=== PATIENT | female | born 1965 | race Caucasian/White ===

== ENCOUNTER 2025-03-24 09:51 | Outpatient (AMB) | payer OTHER, SELFPAY ==
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
[2025-03-24 10:30] VITALS: BP 108/64; PULSE 80; RESP 16; TEMP 36.6; O2SAT 96; BMI 30.1
--- OUTSIDE RECORDS SUMMARY | 2025-03-24 10:49 | XMS_ITS | Patient Health Record ---
Author Organization Total [facility] Address [address] [place] [address] Care Team Providers Care Door Slinger Name Role Phone Estephania Benedict Unavailable [phone] Allergies Allergen (clinical drug ingredient) Drug/Non Drug Allergy documented on EMR Reaction Allergy Type Onset Date Status povidone-iodine Betadine Unknown Drug Allergy A ctive Results Component Value Reference Range Notes Urinalysis Reviewed date:02/03/2025 09:27:36 AM Interpretation: Performing Lab: Notes/Report: PH 8.0 PROTEIN Neg GLUCOSE Neg [id number] IGP No Culture 30 Plus Reviewed date:02/07/2025 11:19:09 AM Interpretation: Performing Lab:[facility] [place], [address], [address], [place], Phone - [phone], Director - [employer] Notes/Report: Clinical Information:Vaginal/Cervical, LMP: Men o [id number] LMP / Prev Treat...[id number] Dates / Results....02/22/21 NIL, Neg HPV Other..............Post Menopausal No. of containers..01 ThinPrep Vial DIAGNOSIS: NEGATIVE FOR INTRAEPITHELIAL LESION OR MALIGNANCY. CELLULAR CHANGES ASSOCIATED WITH ATROPHY ARE PRESENT. Specimen adequacy: Satisfactory for evaluation. Endocervical component may not be distinguished in cases of atrophy. Clinician provided ICD10: Z0 1.419 Performed by: Andreas Olson , Explosive Ordnance Disposal Manager (ASC) . . Note: The Pap smear is a screening test designed to aid in the detection of premalignant and malignant conditions of the uterine cervix. It is not a diagnostic procedure and should not be used as the sole means of detecting cervical cancer. Both false-positive and false-negative reports do occur. . Test Methodology: TN The Thin Prep(R) General Forecaster was unable to read this specimen. Therefore a manual review was performed. HPV Aptima Negative Negative This nucleic acid amplification test detects fourteen high-risk HPV types (16,18,31,33,35,39,45,51,52,56,58 ,59,66,68) without differentiation. HPV Genotype Reflex Criteria not met, HPV Genotype not performed. PDF Report Reviewed date:02/07/2025 11:18:52 AM Interpretation: Performing Lab:[facility], [address], [address], [place], Phone - [phone], Director - [employer] Notes/Report: Clinical Information:Vaginal/Cervical, LMP: Men o [id number] LMP / Prev Treat...[id number] Dates / Results....02/22/21 NIL, Neg HPV Other..............Post Menopausal No. of containers..01 ThinPrep Vial Reason For Referral No Information Medications Medication SIG (Take, Route, Frequency, Duration) Notes Start Date End Date Status Symbicort 80-4.5 MCG/ACT INHALE 2 PUFFS TWICE A DAY Inhalation for 30 Not-Taking Albuterol Sulfate HFA 108 (90 Base) MCG/ACT INHALE 1 PUFF EVERY 6 HOURS NEEDED FOR WHEEZE Inhalation for 25 Not-Taking Calcium Magnesium Zinc 333-133-5 MG 1 tablet with meals Orally Active Glucosamine Chondr Complex Active Flax Seed Oil 1000 MG as directed Orally Active Vitamin B Complex - as directed Orally Active Estradiol 10 MCG 1 tablet Vaginal Two times a Week for 90 days 02/03/2025 Active Social History Tobacco Use: Social History Observation Description Date Details (start date - stop date) Never Smoker NA - NA Sexual History Question Answer Notes Had sex in the past 12 months (vaginal, oral, or anal)? No Have you ever had a Sexually transmitted disease ? No AUDIT-C (Standard) Question Answer Notes Did you have a drink contain ing alcohol in the past year? Yes How often did you have a dri nk containing alcohol in the past year? 2 to 4 times a month (2 points) How many drinks did you have on a typical day when you were drinking in the past year? 1 or 2 drinks (0 point) How often did you have six o r more drinks on one occasion in the past year? Never (0 point) Points 2 Interpretation Negative Tobacco Control (Standard) Question Answer Notes Tobacco use: Nonsmoker Problems Problem Type SNOMED Code ICD Code Onset Dates Problem Status W/U Status Risk Notes Problem Menopause (136386991) Menopausal and female climacteric states (N95.1) Active confirmed Problem Postmenopausal atrophic vaginitis (29090674) Postmenopausal atrophic vaginitis (N95.2) Active confirmed Problem Postmenopausal bleeding (48879151) Postmenopausal bleeding (N95.0) Active confirmed Problem Anxiety disorder (703886610) Anxiety disorder, unspecified (F41.9) Active confirmed Problem Asthma (605148005) Other asthma (J45.998) Active confirmed Problem Abnormal vaginal bleeding (123246882) Other specified abnormal uterine and vaginal bleeding (N93.8) Active confirmed Problem Unspecified menopausal and perimenopausal disorder (N95.9) Active confirmed Problem Menopause (366911179) Menopausal and female climacteric states (N95.1) Active confirmed Vital Signs Temperature 97.9 degrees Fahrenheit 02/03/2025 Blood pressure diastolic 84 mm Hg 02/03/2025 Height 67 in 02/03/2025 Blood pressure systolic 124 mm Hg 02/03/2025 Weight 189 lbs 02/03/2025 BMI 29.6 kg/m2 02/03/2025 Encounters Encounter Location Date Provider Diagnosis [facility] [employer] [facility] [employer] [address] [address] 02/03/2025 Estephania Benedict Encounter for screening mammogram for malignant neoplasm of breast Z12.31 ; Postmenopausal atrophic vaginitis N95.2 and Encounter for gynecological examination (general) (routine) without abnormal findings Z01.419 [facility] [employer] [facility] [address] [address] 02/03/2025 Estephania Benedict Postmenopausal atrophic vaginitis N95.2 [facility] [employer] [facility] [address] [address] 02/15/2025 Estephania Benedict Assessments Encounter Date Diagnosis (ICD Code) Assessment Notes Treatment Notes Treatment Clinical Notes Section Notes 02/03/2025 Encounter for screening mammogram for malignant neoplasm of breast (ICD-10 - Z12.31) REGULAR MAMMOGRAMS AND SBE'S WERE RECOMMENDED. 02/03/2025 Postmenopausal atrophic vaginitis (ICD-10 - N95.2) 02/03/2025 Postmenopausal atrophic vaginitis (ICD-10 - N95.2) DISCUSSED FINDINGS, DX AND TX OPTIONS. DISCUSSED INTRAVAGINAL ESTROGEN, ITS BENEFITS AND RISKS. PAT DECIDED TO TRY. DETAILED INSTRUCTIONS AND RX WERE GIVEN. SHE HAS NO CONTRAINDICATIONS AND ACCEPTS RISKS. 02/03/2025 Encounter for gynecological examination (general) (routine) without abnormal findings (ICD-10 - Z01.419) PAP TEST WITH HPV TYPING WAS OBTAINED. Plan Of Treatment Pending Test Test Name Order Date Sonohysterogram 08/29/2022 Test, Urine 03/10/2021 MAMMOGRAM, SCREENING 02/03/2025 Urinalysis 06/14/2022 Urinalysis 02/22/2021 MM Digital Mammo Screening 02/22/2021 MM Digital Mammo Screening 06/14/2022 MM Digital Mammo Screening 09/10/2023 MM Digital Mammo Screening 02/03/2025 Next Appt Details Provider Name:Estephania Stanley fletcherkaylah, 02/04/2026 10:20:00 AM, [address], [address], [place], [address], Insurance Providers Payer Name Payer Address Payer Phone Subscriber Number Group Number Insured Name Patient Relationship to Insured Coverage Start Date Coverage End Date [employer] [address] [place], [place] [id number] [facility] Self - patient is the insured Medical (General) History Medical History History ICD Code Other asthma J45.998 Anxiety disorder, unspecified F41.9 Other specified abnormal uterine and vag inal bleeding N93.8 Menopausal and female climacteric states N95.1 Postmenopausal bleeding N95.0 Polyp of corpus uteri N84.0 Unspecified menopausal and perimenopausa l disorder N95.9 Surgical History Surgery Date(Month/Year) Breast Biopsy 2014 Colonoscopy D and C Hysteroscopy for Endometrial Edward yp 05/2021 EMB 10/05/22 Hospitalization History Reason Date(Month/Year) 3 Days Fell Broke 6 Ribs 1 Vaginal Delivery
--- OUTSIDE RECORDS SUMMARY | 2025-03-24 10:49 | XMS_ITS ---
Author Organization [facility] Address [address] [facility] [address] [place] [address] Care Team Providers Care Lye Peel Operator Name Role Phone Estephania Benedict Unavailable [phone] Allergies Allergen (clinical drug ingredient) Drug/Non Drug Allergy documented on EMR Reaction Allergy Type Onset Date Status povidone-iodine Betadine Unknown Drug Allergy A ctive Results Component Value Reference Range Notes Urinalysis Reviewed date:02/03/2025 09:27:36 AM Interpretation: Performing Lab: Notes/Report: PH 8.0 PROTEIN Neg GLUCOSE Neg [id number] IGP No Culture 30 Plus Reviewed date:02/07/2025 11:19:09 AM Interpretation: Performing Lab:[facility] [place], [address], [address], [place], Phone - [phone], Director - [facility] Notes/Report: Clinical Information:Vaginal/Cervical, LMP: Men o [id number] LMP / Prev Treat...[id number] Dates / Results....02/22/21 NIL, Neg HPV Other..............Post Menopausal No. of containers..01 ThinPrep Vial DIAGNOSIS: NEGATIVE FOR INTRAEPITHELIAL LESION OR MALIGNANCY. CELLULAR CHANGES ASSOCIATED WITH ATROPHY ARE PRESENT. Specimen adequacy: Satisfactory for evaluation. Endocervical component may not be distinguished in cases of atrophy. Clinician provided ICD10: Z0 1.419 Performed by: Andreas Olsno , Home Theatre Technician (ASCP) . . Note: The Pap smear is a screening test designed to aid in the detection of premalignant and malignant conditions of the uterine cervix. It is not a diagnostic procedure and should not be used as the sole means of detecting cervical cancer. Both false-positive and false-negative reports do occur. . Test Methodology: TNP The Thin Prep(R) Motion Study Technician was unable to read this specimen. Therefore a manual review was performed. HPV Aptima Negative Negative This nucleic acid amplification test detects fourteen high-risk HPV types (16,18,31,33,35,39,45,51,52,56,58 ,59,66,68) without differentiation. HPV Genotype Reflex Criteria not met, HPV Genotype not performed. PDF Report Reviewed date:02/07/2025 11:18:52 AM Interpretation: Performing Lab:[facility], [address], [address], [place], Phone - [phone], Director - [facility] Notes/Report: Clinical Information:Vaginal/Cervical, LMP: Men o [id number] LMP / Prev Treat...[id number]=[id number] Dates / Results....02/22/21 NIL, Neg HPV Other..............Post Menopausal No. of containers..01 ThinPrep Vial REASON FOR VISIT Annual TAPE TRANSFERRER Physical, Annual TAPE TRANSFERRER Physical 60-85+ Medications Medication SIG (Take, Route, Frequency, Duration) Notes Start Date End Date Status Calcium Magnesium Zinc 333-133-5 MG 1 tablet with meals Orally Active Glucosamine Chondr Complex Active Flax Seed Oil 1000 MG as directed Orally Active Vitamin B Complex - as directed Orally Active Symbicort 80-4.5 MCG/ACT INHALE 2 PUFFS TWICE A DAY Inhalation for 30 Not-Taking Albuterol Sulfate HFA 108 (90 Base) MCG/ACT INHALE 1 PUFF EVERY 6 HOURS NEEDED FOR WHEEZE Inhalation for 25 Not-Taking Estradiol 10 MCG 1 _insert Vaginal Tw o times a Week for 90 days 02/03/2025 [...] Problem Status W/U Status Risk Notes Problem Postmenopausal atrophic vaginitis (75943754) Postmenopausal atrophic vaginitis (N95.2) Active confirmed Vital Signs Temperature 97.9 degrees Fahrenheit 02/04/20 25 Blood pressure systolic 124 mm Hg 02/04/20 25 Blood pressure diastolic 84 mm Hg 025 Height 67 in 02/03/2025 Weight 189 lbs 02/03/2025 BMI 29.6 kg/m2 02/03/2025 Encounters Encounter Location Date Provider Diagnosis [address] [place] [address] 02/03/2025 Estephania Benedict Encounter for screening mammogram for malignant neoplasm of breast Z12.31 ; Postmenopausal atrophic vaginitis N95.2 and Encounter for gynecological examination (general) (routine) without abnormal findings Z01.419 Assessments Encounter Date Diagnosis (ICD Code) Assessment [...] HPV TYPING WAS OBTAINED. Plan Of Treatment Medication Medication Name Sig Start Date Stop Date Notes Estradiol 10 MCG 1 _insert Vaginal Tw o times a Week for 90 days 02/03/2025 Treatment Notes Assessment Notes Encounter for screening mamm ogram for malignant neoplasm of breast REGULAR MAMMOGRAMS AND SBE'S WERE RECOMMENDED. Postmenopausal atrophic vaginitis DISCUSSED FINDINGS, DX AND TX OPTIONS. DISCUSSED INTRAVAGINAL ESTROGEN, ITS BENEFITS AND RISKS. PAT DECIDED TO TRY. DETAILED INSTRUCTIONS AND RX WERE GIVEN. SHE HAS NO CONTRAINDICATIONS AND ACCEPTS RISKS. Encounter for gynecological examination (general) (routine) without abnormal findings PAP TEST WITH HPV TYPING WAS OBTAINED. Pending Test Test Name Order Date MAMMOGRAM, SCREENING 02/03/2025 MM Digital Mammo Screening 02/03/2025 Next Appt Details Follow Up: 1 Year, Reason: Provider Name:Estephania mccrary, 02/04/2026 10:20:00 AM, [address] [place] [address], [address], [place], [address], Progress Notes * KRYSTINAIVETH LOYDREBECCAOB: [birth year] (60 yo F)Acc No.[id number]:02/03/2025 PROGRESS NOTES Patient:?ARMAND MORIN Appointment Provider:?Estephania mccrary M.D. :1965???Age:60 Y???Sex:Female D ate:02/03/2025 Address:[address] [place], [place] [id number] Subjective: * Chief Complaints: * ??? Annual TAPE TRANSFERRER PhysicalAnnua l TAPE TRANSFERRER Physical 60-85+ * HPI: ???New/Follow-up Patient Consult:? PAT ENTERED MENOPAUSE IN 2020.? SHE WAS IN 2016 AND HAD A NEW PARTNER FOR A FEW YEARS BUT THEY HAVE BROKEN UP.? SHE IS NOT SEXUALLY ACTIVE. SHE UNDERWENT HYSTEROSCOPY, POLYPECTOMY AND D&C IN 2020 WITH BENIGN FINDINGS. SHE HAD PMB IN 2021 AND HSONO AND EMB WERE NEGATIVE. HER LAST MAMMOGRAM DONE IN DEC 2024 SHOWED BREASTS ARE NOT DENSE AND WAS NORMAL. HER LAST PAP TEST IN 2020 WAS NEGATIVE AND HPV NEGATIVE. SHE HAD COLONOSCOPIES DONE IN 2014 AND 2023. ???Annual:? Patient presents for annual exam, ages 60-85, postmenopausal. 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 * Medical History:? * Project Development Coordinator History:?/ Para?11/18.?Sexual activity?not currently sexually active.?Last Pap Smear:?02/22/21 NIL, NEG HPV, 04/10/17, NIL, NEG HPV.?Mammogram:?12/21/24 < 50% density, 2021, 09/06/21 < 50% density, 09/02/20 Mylene Rain.?Abnormal Pap Smear:?no history of abnormal pap smears.?LMP and menses?Mirella 02/11/21.?History of STD's:?none.?Colonoscopy?2023 Q 10 Years, 2014.? * OB History:?Total pregnancies?1.?Total living children?1.?NVD?1.? * Surgical History:?Breast Bio psy 2014Colonoscopy D and C Hysteroscopy for Endometrial Polyp 1EMB 10/05/22 * Hospitalization/Major Diagno stic Procedure:?1 Vaginal Delivery 3 Days Fell Broke 6 Ribs * Family History:?Mother: dece ased, Lymphoma Stage 4.?Father: .? Sister: Stage 4 Pancreatic Cancer. * Social History:?Tobacco Use:?Tobacco Control (Standard)?Tobacco use:?Nonsmoker ???Sexual History:?Sexual History?Had sex in the past 12 months (vaginal, oral, or anal)??No ?Have you ever had a Sexually transmitted disease??No ?Details of Sexual History?Are you sexually active??No ???Drugs/Alcohol:?Drugs?Have you used drugs other than those for medical reasons in the past 12 months??No ???Miscellaneous:?Children: yes, 1. ?Exercise: Not enough. ?Home smoke detector use: yes. ?Marital status: . ?Natural support system: yes. 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 ?Sexually active: no. ???Drug/Alcohol:?AUDIT-C (Standard)?Did you have a drink containing alcohol in the past year??Yes ?How often did you have a drink containing alcohol in the past year??2 to 4 times a month (2 points) ?How many drinks did you have on a typical day when you were drinking in the past year??1 or 2 drinks (0 point) ?How often did you have six or more drinks on one occasion in the past year??Never (0 point) ?Points?2 ?Interpretation?Negative * Medications:?TakingVitamin B Complex - Tablet as directed Orally Flax Seed Oil 1000 MG Capsule as directed Orally Glucosamine Chondr Complex Calcium Magnesium Zinc 333-133-5 MG Tablet 1 tablet with meals Orally Taking Vitamin B Complex - Tablet as directed Orally Taking Flax Seed Oil 1000 MG Capsule as directed Orally Taking Glucosamine Chondr Complex Taking Calcium Magnesium Zinc 333-133-5 MG Tablet 1 tablet with meals Orally Not-TakingSymbicort 80-4.5 MCG/ACT Aerosol INHALE 2 PUFFS TWICE A DAY Inhalation Albuterol Sulfate HFA 108 (90 Base) MCG/ACT Aerosol Solution INHALE 1 PUFF EVERY 6 HOURS NEEDED FOR WHEEZE Inhalation Not-Taking Symbicort 80-4.5 MCG/ACT Aerosol INHALE 2 PUFFS TWICE A DAY Inhalation Not-Taking Albuterol Sulfate HFA 108 (90 Base) MCG/ACT Aerosol Solution INHALE 1 PUFF EVERY 6 HOURS NEEDED FOR WHEEZE Inhalation DiscontinuedCitalopram Hydrobromide 10 MG Tablet 1 tablet Orally Once a day Medication List reviewed and reconciled with the patientDiscontinued Citalopram Hydrobromide 10 MG Tablet 1 tablet Orally Once a day Medication List reviewed and reconciled with the patient * Allergies:?Betadine: Allergy no[Allergies Verified] Objective: * Vitals:?Ht: 67 in, Wt:189lbs , BMI:29.6Index, BP:124/84mm Hg, Temp:97.9F. * Examination: ???General Exam: ?CONSTITUTIONAL:?General Appearance:?alert, in no acute distress, normal, well nourished ?NECK/THYROID:?Inspection/Palpation:?normal ?Thyroid:?normal size and shape ?RESPIRATORY:?Auscultation: clear to auscultation bilaterally, Respiratory Effort: normal.?CARDIOVASCULAR:?Auscultation: regular rate and rhythm.?BREAST, Right:?Inspection/Palpation:?no discharge, no masses present, no nipple retraction, no skin changes, no skin dimpling, no tenderness, no lymphadenopathy, no axillary mass, no axillary tenderness ?BREAST, Left:?Inspection/Palpation:?no discharge, no masses present, no nipple retraction, no skin changes, no skin dimpling, no tenderness, no lymphadenopathy, no axillary mass, no axillary tenderness ?GASTROINTESTINAL:?Abdomen:?no masses, nontender, nondistended ?Liver and Spleen:?normal ?Hernias:?no hernias present, no inguinal adenopathy ?MUSCULOSKELETAL:?Inspection/Palpation:?no clubbing, cyanosis, or edema ?SKIN:?Skin:?normal ?NEURO/PSYCH:?Orientation:?time , place, person ?Mood/Affect:?normal?Genitourinary: ?EXTERNAL GENITALIA:?External Genitalia:?normal, no lesions ?VAGINA:?Vagina:?atrophic vaginal tissue, minimal moisture ?BLADDER:?Bladder:?no mass, nontender ?URETHRA:?Urethra:?no erythema or lesions present ?CERVIX:?Cervix:?no lesions, nontender ?UTERUS:?Uterus:?nontender, normal contour, normal mobility, normal size ?ADNEXA:?Adnexa:?no masses, no tenderness ?ANUS AND PERINEUM:?Anus/Perineum:?visually normal??? Assessment: * Assessment: 1.?Encounter for screening m ammogram for malignant neoplasm of breast - Z12.31???2.?Postmenopausal atrophic vaginitis - N95.2???3.?Encounter for gynecological examination (general) (routine) without abnormal findings - Z01.419 (Primary)??? Plan: * Treatment: 2.?Encounter for screening m ammogram for malignant neoplasm of breast?Imaging: MM Digital Mammo Screening Notes: REGULAR MAMMOGRAMS AND SBE'S WERE RECOMMENDED.?? 3.?Postmenopausal atrophic v aginitis? Start Estradiol Insert, 10 MCG, 1 _insert, Vaginal, Two times a Week, 90 days, 24 Tablet, Refills 5.?? Notes: DISCUSSED FINDINGS, DX AND TX OPTIONS. DISCUSSED INTRAVAGINAL ESTROGEN, ITS BENEFITS AND RISKS. PAT DECIDED TO TRY. DETAILED INSTRUCTIONS AND RX WERE GIVEN. SHE HAS NO CONTRAINDICATIONS AND ACCEPTS RISKS.?? * Imaging:? * ?Imaging: MAMMOGRAM, SCR EENING * Labs:? * ?Lab: Urinalysis ([facility] Date & Time - 02/03/2025) ? Value Reference Range ?PH 8.0 * ?PROTEIN Neg * ?GLUCOSE Neg * D., VAISHALI 02/03/2025 09:21:15 AM EDT > ?Lab: [id number] IGP No Culture 30 Plus* Vaginal/Cervical, LMP: [place] * Procedure Codes:? * Preventive Medicine:? ??YOUR PREVENTIVE WELLNESS PLAN:?Osteoporosis prevention?Calcium, D, strength training.?Breast Cancer Screening (Mammogram):?annually.?Cervical Cancer Screening (Pap Smear):?q 3 years with HPV screen.?Colorectal Cancer Screening:?q 10 years.? * Follow Up:?1 Year * Images: Billing Information: * Visit Code:? [id number] Preventive Care Est Pt. Age 65 and over. * Procedure Codes:? * Sign off status: Completed true * Appointment Provider:?Estephania Benedict M.D. Date:?02/03/2025 Generated for Ronald harris/Ana/eTchanelsmitting on:?03/24/2025 10:49 AM EDT History and Physical Notes * HPI (History of Present Illness) Category Sub-Category Detail Notes Category Not es New/Follow-up Patient Consult PAT ENTERED MENOPAUSE IN 2020. SHE WAS IN 2017 AND HAD A NEW PARTNER FOR A FEW YEARS BUT THEY HAVE BROKEN UP. SHE IS NOT SEXUALLY ACTIVE. SHE UNDERWENT HYSTEROSCOPY, POLYPECTOMY AND D&C IN 2020 WITH BENIGN FINDINGS. SHE HAD PMB IN 2021 AND HSONO AND EMB WERE NEGATIVE. HER LAST MAMMOGRAM DONE IN DEC 2024 SHOWED BREASTS ARE NOT DENSE AND WAS NORMAL. HER LAST PAP TEST IN 2020 WAS NEGATIVE AND HPV NEGATIVE. SHE HAD COLONOSCOPIES DONE IN 2014 AND 2023. 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 Examination Category Sub-Category Detail Notes Category Not es General Exam CONSTITUTIONAL: General Appearan ce:: alert, in no acute distress, normal, well nourished NECK/THYROID: Thyroid:: normal size and shape Inspection/Palpation:: normal RESPIRATORY: Auscultation: clear to auscultation bilaterally, Respiratory Effort: normal CARDIOVASCULAR: Auscultation: regula r rate and rhythm GASTROINTESTINAL: Hernias:: no hernias present, no inguinal adenopathy Liver and Spleen:: normal Abdomen:: no masses, nontender, nondiste nded MUSCULOSKELETAL: Inspection/Palpation:: no clubb ing, cyanosis, or edema SKIN: Skin:: normal NEURO/PSYCH: Mood/Affect:: normal Orientation:: time , place, person BREAST, Right: Inspection/Palpation :: no discharge, no masses present, no nipple retraction, no skin changes, no skin dimpling, no tenderness, no lymphadenopathy, no axillary mass, no axillary tenderness BREAST, Left: Inspection/Palpation :: no discharge, no masses present, no nipple retraction, no skin changes, no skin dimpling, no tenderness, no lymphadenopathy, no axillary mass, no axillary tenderness Genitourinary EXTERNAL GENITALIA: External Genitalia:: nor mal, no lesions VAGINA: Vagina:: atrophic vaginal tissue , minimal moisture BLADDER: Bladder:: no mass, nontender URETHRA: Urethra:: no erythema or lesions present CERVIX: Cervix:: no lesions, nontender UTERUS: Uterus:: nontender, normal conto ur, normal mobility, normal size ADNEXA: Adnexa:: no masses, no tendernes s ANUS AND PERINEUM: Anus/Perineum:: visually norm al
--- OUTSIDE RECORDS SUMMARY | 2025-03-24 10:50 | XMS_ITS ---
Author Organization [facility] Address [address] [place] [address] Care Team Providers Care Plc Engineer Name Role Phone Estephania Benedict Unavailable [phone] REASON FOR VISIT RX QUESTION Encounters Encounter Location Date Provider Diagnosis [facility] [address] [place] [address] 02/15/2025 Estephania Benedict Plan Of Treatment Next Appt Details Provider Name:Estephania mccrary, 02/04/2026 10:20:00 AM, [address] [facility] [facility] [address], [place], [address], Progress Notes * EDELMIRA MORINOB: [birth year] (60 yo F)Acc No.[id number]:02/15/2025 Patient:?ARMAND MORIN :1965???Age:60 Y???Sex:Female Address:[address] [place] [address], [address] * true * Date:? Generated for Printi ng/Fapriteshg/eTransmitting on:?03/24/2025 10:49 AM EDT
--- OUTSIDE RECORDS SUMMARY | 2025-03-24 10:50 | XMS_ITS ---
Author Organization [facility] Address [address] [place] [address] Care Team Providers Care High Court Justice Name Role Phone Estephania Benedict Unavailable [phone] REASON FOR VISIT ESTRADIOL RX FROM 02/03 Medications Medication SIG (Take, Route, Fr equency, Duration) Notes Start Date End Date Status Estradiol 10 MCG 1 tablet Vaginal Two times a Week for 90 days 02/03/2025 Active Encounters Encounter Location Date Provider Diagnosis [facility] [address] 02/03/2025 Estephania Benedict Postmenopausal atrophic vaginitis N95.2 Assessments Encounter Date Diagnosis (ICD Code) Assessment Notes Treatment Notes Treatment Clinical Notes Section Notes 02/03/2025 Postmenopausal atrophic vaginitis (ICD-10 - N95.2) Plan Of Treatment Medication Medication Name Sig Start Date Stop Date Notes Estradiol 10 MCG 1 tablet Vaginal Two times a Week for 90 days 02/03/2025 Next Appt Details Provider Name:Estephania mccrary, 02/04/2026 10:20:00 AM, [address] [place] [address], [place], [address], Progress Notes * EDELMIRA MORINOB: [birth year] (60 yo F)Acc No.[id number]:02/03/2025 Patient:?ARMAND MORIN :1965???Age:60 Y???Sex:Female Address:[address] [place] [address], [address] * Refills? Refill Estradiol Tablet, 10 MCG, Vaginal, 24 Tablet, 1 tablet, Two times a Week, 90 days, Refills=4 * true * Date:? Generated for Ronald harris/Ana/Belia on:?03/24/2025 10:49 AM EDT
== END 2025-03-24 11:04 | disposition home or self-care (01) ==
LOC: HO.HMCFM 09:52
PROVIDERS: PCP Family Medicine; Visit Provider Family Medicine
DX: J45.909 Unspecified asthma, uncomplicated (principal); M54.9 Dorsalgia, unspecified; F41.9 Anxiety disorder, unspecified; Z80.8 Family history of malignant neoplasm of other organs or systems; Z00.00 Encounter for general adult medical examination without abnormal findings

== ENCOUNTER → 2025-03-24 09:51 | Outpatient (BNVA) | payer OTHER, SELFPAY | PROVIDERS: PCP Family Medicine; Visit Provider Family Medicine | DX: Z76.89 Persons encountering health services in other specified circumstances (principal); J45.909 Unspecified asthma, uncomplicated; M54.9 Dorsalgia, unspecified; F41.9 Anxiety disorder, unspecified; Z80.8 Family history of malignant neoplasm of other organs or systems | CPT/HCPCS: 96127; 96160 ==

== ENCOUNTER 2025-06-17 08:16 | Outpatient (REF) | payer OTHER, SELFPAY ==
--- OUTSIDE RECORDS SUMMARY | 2024-09-11 06:40 | XMS_ITS ---
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 :1965 A ge:59 Y S ex:Female Date:09/11/2024 Address:[address] [place], [place] [id number] Subjective: * Chief Complaints: * 1 . 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 * Medical History: Objective: * Vitals: Assessment: Plan: * Treatment: * Images: Billing Information: * Visit Code: * Procedure Codes: * Electronic signature of Zain Benedict MD on 06/17/2025 at 08:23 AM EDT Sign off status: Pending * Appointment Provider: [place] Benedict M.D. Date: 1 Generated for Ronald harris/Ana/Belia on: 0 06/17/2025 08:23 AM EDT
--- OUTSIDE RECORDS SUMMARY | 2025-06-17 08:23 | XMS_ITS | Encounter Summary ---
Author Organization [facility] Address [address] [facility], [place] [address] [place] [address] Phone Care Team Providers Care Mate Fishing Vessel Name Role Phone Biibana Taylor NP Unavailable [phone] Lara Dinh RDCS Unavailable [email or web address] Becky Longo MD Unavailable Alexandra Townsend MD Unavailable Simran James MD Primary Care Provider [phone] Simran James MD Primary Care Provider [phone] Tenzin eHrnandez MD Primary Care Provide r Simran James MD Primary Care Provider [phone] Encounter Details Date Type Department Care Team (Late st Contact Info) Description 05/27/2019 Ancillary Orders Virtual Department [address] [place] [address] Simran James MD [address] [place], [place] [phone] [email or web address] Breast screening Social History Tobacco Use Types Packs/Day Years Used Date Smoking Tobacco: Never Assessed Comments Unknown Sex and Gender Information Value Date Recorded Sex Assigned at Not on file Legal Sex Female 9:43 PM EDT Gender Identity Not on file Sexual Orientation Not on file documented as of this encounter Plan of Treatment Not on file documented as of this encounter Results * BI MAMMOGRAM SCREENING WITH TOMOSYNTHESIS WITH CAD (BILATERAL) (06/03/2019 10:19 AM EDT) Anatomical Region Laterality Modality Breast Left, Breast Right, Breast Bilateral Bila teral Mammography 06/03/2019 7:35 PM EDT Impressions 06/03/2019 7:41 PM EDT BILATERAL BREASTS: Negative, no evidence of malignancy. Normal interval follow- up is recommended in 12 months. Bi-RADS: BI-RADS CATEGORY: 1 - Negative. DENSITY: The breast tissue is heterogeneously dense, an appearance which lowers the sensitivity of mammography. POS - CDHMAMA Narrative 06/03/2019 7:41 PM EDT STUDY: Bilateral screening mammography with tomosynthesis and CAD History of right breast lumpectomy for atypia in 2014 TECHNIQUE: Bilateral full-field digital screening mammography is obtained and read in conjunction with computer-aided detection. Tomosynthesis as well as 2-D C view imaging were obtained. COMPARISON: Comparison made to multiple prior, most recent January 10, 2018, and most remote November 03, 2009. BREAST COMPOSITION: The breasts are heterogeneously dense, which may obscure small masses. BILATERAL BREASTS: No significant masses, calcifications or other abnormalities are seen. Procedure Note Ana Maria Burton MD - 06/03/2019 STUDY: Bilateral screening mammography with tomosynthesis and CAD History of right breast lumpectomy for atypia in 2014 TECHNIQUE: Bilateral full-field digital screening mammography is obtainedand read in conjunction with computer-aided detection. Tomosynthesis aswell as 2-D C view imaging were obtained. COMPARISON: Comparison made to multiple prior, most recent December, and most remote November 03, 2009. BREAST COMPOSITION: The breasts are heterogeneously dense, which mayobscure small masses. BILATERAL BREASTS: No significant masses, calcifications or otherabnormalities are seen. IMPRESSION: BILATERAL BREASTS: Negative, no evidence of malignancy. Normal intervalfollow-up is recommended in 12 months. Bi-RADS: BI-RADS CATEGORY: 1 - Negative. DENSITY: The breast tissue is heterogeneously dense, an appearance whichlowers the sensitivity of mammography. POS - CDHMAMA Simran James MD IMG MG EXAMS Final Res ult documented in this encounter Visit Diagnoses Diagnosis Breast screening Breast screening, unspecified Breast screening Breast screening, unspecified documented in this encounter Care Teams Mate Fishing Vessel Relationship Specialty Start Date End Date Simran James MD [address] [place] [address] [email or web address] PCP - General Family Medicine 05/27/19 03/09/20 Simran James MD [address] [place] [address] [email or web address] PCP - General Family Medicine 03/10/20 09/09/21 Tenzin Hernandez MD [address] [address] PCP - General Family Medicine 09/10/21 09/25/21 Simran James MD [address] [place] [address] [email or web address] PCP - General Family Medicine 09/26/21 Bibiana Taylor NP [address] [place] [address] [address] [place] [address] Historical LMR Provider 09/04/17 2 Lara Dinh RDCS Historical LMR Provider 09/04/17 11/25/21 Becky Longo MD [address] [place] [address] [address] [place] [phone] [email or web address] Historical LMR Provider 09/04/17 2 Alexandra Townsend MD [address] [place] [id number] [email or web address] Historical LMR Provider 09/04/17 11/25/21 documented as of this encounter Additional Source Comments The information contained in this document represents components of the legal health record. It is not the complete legal health record.[facility]
[2025-06-17 11:09] LABS: Appearance Urine Turbid; Glucose Urine UA Negative (Negative); PH >= 9.0 (5.0-9.0); Specific Gravity - Urine 1.015 (1.005-1.025)
[2025-06-17 11:12] LABS: MANUAL DIFF FLAG NO
[2025-06-17 11:20] LABS: Hematocrit 42.6 % (37.0-47.0); Hemoglobin 14.2 g/dl (12.0-16.0); Imm Gran Abs Auto 0.02 X10*3/uL (0.00-0.03); Imm Gran Pct Auto 0.5 % (0.0-0.4); Lymphocytes Absolute Auto 1.0 X10*3/uL (1.2-4.9); Mean Corpuscular HGB Conc 33.3 g/dl (31.0-35.0); Mean Corpuscular Hemoglobin 30.6 pg (27.0-33.0); Mean Corpuscular Volume 91.8 fL (80.0-98.0); NRBC Abs Auto 0.000 X10*3/uL (0.0-0.012); NRBC Pct Auto 0.0 /100WBC (0.0-0.2); Platelet Count 219 X10*3/uL (160-400); Red Blood Count 4.64 X10*6/uL (4.20-5.50); White Blood Count 4.4 X10*3/uL (4.8-10.8)
[2025-06-17 11:54] LABS: Alanine Aminotransferase 25 U/L (0-31); Albumin Level 4.3 g/dL (3.5-5.0); Alkaline Phosphatase 55 U/L (39-117); Anion Gap 8 (12-20); Aspartate Amino Transferase 27 U/L (5-31); Blood Urea Nitrogen 14 mg/dL (9-16); Calcium 8.9 mg/dL (8.4-10.2); Carbon Dioxide 28 mmol/L (22-29); Chloride 112 mmol/L (96-108); Cholesterol 183 mg/dL (<200); Estimated Glomerular Filt Rate > 60; HDL Cholesterol 66 mg/dL (>40); Potassium 4.1 mmol/L (3.3-5.1); Sodium 144 mmol/L (135-145); Total Protein 6.4 g/dL (6.5-8.0); Triglycerides 45 mg/dL (<150)
== END 2025-06-17 08:17 | disposition home or self-care (01) ==
LOC: HO.WFDLDS 08:16
PROVIDERS: Visit Provider Family Medicine
DX: Z00.00 Encounter for general adult medical examination without abnormal findings (principal); I10 Essential (primary) hypertension; E55.9 Vitamin D deficiency, unspecified
CPT/HCPCS: 36415; 80053; 80061; 81003; 82043; 82306; 82570; 84443; 85025

== ENCOUNTER 2025-07-26 11:52 | Outpatient (AMB) | payer OTHER, SELFPAY ==
--- OUTSIDE RECORDS SUMMARY | 2024-09-11 06:40 | XMS_ITS ---
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 :1965 A ge:59 Y S ex:Female Date:09/11/2024 Address:[address] [place], [place] [id number] Subjective: * Chief Complaints: * 1 . 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 * Medical History: Objective: * Vitals: Assessment: Plan: * Treatment: * Images: Billing Information: * Visit Code: * Procedure Codes: * Electronic signature of Zain Benedict MD on 07/26/2025 at 02:26 PM EDT Sign off status: Pending * Appointment Provider: [place] Benedict M.D. Date: 1 Generated for Ronald harris/Ana/Belia on: 0 07/26/2025 02:26 PM EDT
--- OUTSIDE RECORDS SUMMARY | 2024-10-29 06:40 | XMS_ITS ---
Author Organization Total [facility] Address [address] [place] [address] Care Team Providers Care Ferryboat Deckhand Name Role Phone Estephania Benedict Unavailable [phone] REASON FOR VISIT Annual (YELLOW FORM DONE) Encounters Encounter Location Date Provider Diagnosis [facility] [employer] [address] [address] 10/29/2024 Estephania Benedict Plan Of Treatment Next Appt Details Provider Name:Estephania mccrary, 02/04/2026 10:20:00 AM, [address] [place] [address], [place], [address], Progress Notes * EDELMIRA MORINOB: [birth year] (60 yo F)Acc No.[id number]:10/29/2024 PROGRESS NOTES Patient: ARMAND CHEN Appointment Provider: [place] Benedict M.D. :1965 A ge:59 Y S ex:Female Date:10/29/2024 Address:[address] [place], [place] [id number] Subjective: * Chief Complaints: * 1 . Annual (YELLOW FORM DONE). * Medical History: Objective: * Vitals: Assessment: Plan: * Treatment: * Images: Billing Information: * Visit Code: * Procedure Codes: * Electronic signature of Zain Benedict MD on 07/26/2025 at 02:27 PM EDT Sign off status: Pending * Appointment Provider: [place] Benedict M.D. Date: 1 12/30/2023 Generated for Printi ng/Ana/Oscaritting on: 0 07/26/2025 02:27 PM EDT
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
[2025-07-26 12:31] VITALS: BP 118/66; PULSE 80; O2SAT 97; BMI 30.5
--- OUTSIDE RECORDS SUMMARY | 2025-07-26 14:27 | XMS_ITS | Encounter Summary ---
Author Organization [facility] Address [address] [address] Phone Care Team Providers Care Manager Business Banking Name Role Phone Bibiana Taylor NP Unavailable Lara Dinh RDCS Unavailable [email or web address] Becky Longo MD Unavailable Alexandra Townsend MD Unavailable [phone] Simran James MD Primary Care Provider [phone] Tenzin Hernandez MD Primary Care Provide r Simran James MD Primary Care Provider [phone] Encounter Details Date Type Department Care Team (Latest Contact Info) Description 08/24/2021 Transcribe Orders Virtual Department [address] [place] [address] Simran James MD [address] [place] [address] [email or web address] Breast screening (Primary Dx) Social History Tobacco Use Types Packs/Day Years Used Date Smoking Tobacco: Never Assessed Comments No Sex and Gender Information Value Date Recorded Sex Assigned at Not on file Legal Sex Female 9:43 PM EDT Gender Identity Not on file Sexual Orientation Not on file documented as of this encounter Plan of Treatment Not on file documented as of this encounter Results * BI MAMMOGRAM SCREENING WITH TOMOSYNTHESIS WITH CAD (BILATERAL) (09/06/2021 1:34 PM EDT) Anatomical Region Laterality Modality Breast Left, Breast Right, Breast Bilateral Bila teral Mammography 09/06/2021 4:44 PM EDT Impressions 09/06/2021 5:55 PM EDT BILATERAL BREASTS: Negative, no evidence of malignancy. Normal interval follow- up is recommended in 12 months. Bi-RADS: BI-RADS CATEGORY: 1 - Negative. DENSITY: There are scattered fibroglandular densities. Narrative 09/06/2021 5:55 PM EDT STUDY: Bilateral screening mammography with tomosynthesis and CAD History: Right lumpectomy for atypia in 2014. TECHNIQUE: Bilateral full-field digital screening mammography is obtained and read in conjunction with computer-aided detection. Tomosynthesis as well as 2-D C view imaging were obtained. COMPARISON: Comparison made to multiple prior, most recent September 02, 2020, and most remote January 06, 2015. BREAST COMPOSITION: There are scattered areas of fibroglandular density BILATERAL BREASTS: No significant masses, suspicious calcifications or other abnormalities are seen. Procedure Note Ana Maria Burton MD - 09/06/2021 STUDY: Bilateral screening mammography with tomosynthesis and CAD History: Right lumpectomy for atypia in 2014. TECHNIQUE: Bilateral full-field digital screening mammography is obtainedand read in conjunction with computer-aided detection. Tomosynthesis aswell as 2-D C view imaging were obtained. COMPARISON: Comparison made to multiple prior, most recent August, and most remote January 06, 2015. BREAST COMPOSITION: There are scattered areas of fibroglandulardensity BILATERAL BREASTS: No significant masses, suspicious calcifications orother abnormalities are seen. IMPRESSION: BILATERAL BREASTS: Negative, no evidence of malignancy. Normal intervalfollow-up is recommended in 12 months. Bi-RADS: BI-RADS CATEGORY: 1 - Negative. DENSITY: There are scattered fibroglandular densities. Simran James MD IMG MG EXAMS Final Res ult documented in this encounter Visit Diagnoses Diagnosis Breast screening- Primary Breast screening, unspecified Breast screening Breast screening, unspecified documented in this encounter Care Teams Manager Business Banking Relationship Specialty Start Date End Date Simran James MD [address] [place] [address] [email or web address] PCP - General Family Medicine 03/10/20 09/09/21 Tenzin Hernandez MD [address] [address] PCP - General Family Medicine 09/10/21 09/25/21 Simran James MD [address] [place] [address] [email or web address] PCP - General Family Medicine 09/26/21 Bibiana Taylor NP [address] [place] [address] Historical LMR Provider 09/04/17 2 Lara Dinh, RDCS [email or web address] Historical LMR Provider 09/04/17 11/25/21 Becky Longo MD [address] [place] [address] [place] [id number] [email or web address] Historical LMR Provider 09/04/17 2 Alexandra Townsend MD [address] [address] [email or web address] Historical LMR Provider 09/04/17 11/25/21 documented as of this encounter Additional Source Comments The information contained in this document represents components of the legal health record. It is not the complete legal health record.[facility]
--- OUTSIDE RECORDS SUMMARY | 2025-07-26 14:27 | XMS_ITS | Encounter Summary ---
Author Organization [facility] Address [address] [facility] [address] [place] [address] Phone Care Team Providers Care Woods Rider Name Role Phone Bibiana Taylor HUMAN RESOURCES COMMUNICATIONS MANAGER Unavailable [phone] Lara Dinh RDCS Unavailable [email or web address] Becky Longo MD Unavailable Alexandra Townsend MD Unavailable [phone] Simran James MD Primary Care Provider [phone] Tenzin Hernandez MD Primary Care Provide r Simran James MD Primary Care Provider [phone] Encounter Details Date Type Department Care Team (Late st Contact Info) Description 07/19/2020 Procedure Pass [address] [address] Social History Tobacco Use Types Packs/Day Years Used Date Smoking Tobacco: Never Assessed Comments No Sex and Gender Information Value Date Recorded Sex Assigned at Not on file Legal Sex Female 9:43 PM EDT Gender Identity Not on file Sexual Orientation Not on file documented as of this encounter Plan of Treatment Not on file documented as of this encounter Visit Diagnoses Not on filedocumented in this encounter Care Teams Woods Rider Relationship Specialty Start Date End Date Simran James [place] [address] [email or web address] PCP - General Family Medicine 03/10/20 09/09/21 Tenzin Hernandez MD [address] [address] PCP - General Family Medicine 09/10/21 09/25/21 Simran James MD [address] [place] [address] [email or web address] PCP - General Family Medicine 09/26/21 Bibiana Taylor NP [address] [place] [address] Historical LMR Provider 09/04/17 2 Lara Dinh, GIORGIOCS [email or web address] Historical LMR Provider 09/04/17 11/25/21 Becky Longo MD [address] [facility] [address] [place] [address] [email or web address] Historical LMR Provider 09/04/17 2 Alexandra Townsend MD [address] [address] [email or web address] Historical LMR Provider 09/04/17 11/25/21 documented as of this encounter Additional Source Comments The information contained in this document represents components of the legal health record. It is not the complete legal health record.[facility]
--- OUTSIDE RECORDS SUMMARY | 2025-07-26 14:27 | XMS_ITS | Encounter Summary ---
Author Organization [facility] Address [address] [facility] [address] [place] [address] Phone Care Team Providers Care Exhaust Worker Name Role Phone Simran James MD Primary Care Provider [phone] Encounter Details Date Type Department Care Team (Latest Contact Info) Description 10/19/2024 Transcribe Orders Virtual Department [address] [place] [address] Simran James MD [address] [place], [place] [id number] [email or web address] Breast screening (Primary Dx) Social History Tobacco Use Types Packs/Day Years Used Date Smoking Tobacco: Never Smokeless Tobacco: Never Alcohol Use Standard Drinks/Week Comments Yes 0 (1 standard drink = 0.6 oz pur e alcohol) a couple times a week Education Answer Date Recorded Are you interested in more education? Not on dave e 03/15/2023 Are you concerned about learning? Not on file 03/15/2023 No 03/15/2023 No 03/15/2023 Digital Access Answer Date Recorded No 04/13/2023 No 04/13/2023 Reliable internet access at home? Not on file 04/13/2023 Device with a working camera? Not on file Intimate Partner Violence Answer Date R ecorded Are you denied basic needs s uch as food, clothing, or medical care? No 10/13/2024 In the past 12 months have y ou been in a relationship with a person who hurts, threatens, or tries to control you? No 10/13/2024 Are you denied basic needs s uch as food, clothing, or medical care? No 10/13/2024 In the past 12 months have y ou been in a relationship with a person who hurts, threatens, or tries to control you? No 10/13/2024 Comments No Sex and Gender Information Value Date Recorded Sex Assigned at Not on file Legal Sex Female 9:43 PM EDT Gender Identity Not on file Sexual Orientation Not on file documented as of this encounter Plan of Treatment Not on file documented as of this encounter Visit Diagnoses Diagnosis Breast screening- Primary Breast screening, unspecified documented in this encounter Care Teams Exhaust Worker Relationship Specialty Start Date End Date Simran James MD [address] [place] [address] [email or web address] PCP - General Family Medicine 09/26/21 documented as of this encounter Additional Source Comments The information contained in this document represents components of the legal health record. It is not the complete legal health record.[facility]
--- OUTSIDE RECORDS SUMMARY | 2025-07-26 14:27 | XMS_ITS | Encounter Summary ---
Author Organization [facility] Address [address] [facility] [address] [place] [address] Phone Care Team Providers Care Rn Discharge Name Role Phone Bibiana Taylor DRILLING FIELD SPECIALIST Unavailable Lara Dinh RDCS Unavailable [email or web address] Becky Longo MD Unavailable Alexandra Townsend MD Unavailable [phone] Simran James MD Primary Care Provider [phone] Tenzin Hernandez MD Primary Care Provide r Simran James MD Primary Care Provider [phone] Encounter Details Date Type Department Care Team (Late st Contact Info) Description 08/24/2021 Procedure Pass [address] [address] Social History Tobacco Use Types Packs/Day Years [...] on filedocumented in this encounter Care Teams Rn Discharge Relationship Specialty Start Date End Date Simran James MD [address] [place] [address] [email or web address] PCP - General Family Medicine 03/10/20 09/09/21 Tenzin Hernandez MD [address] [address] PCP - General Family Medicine 09/10/21 09/25/21 Simran James MD [address] [place] [address] [email or web address] PCP - General Family Medicine 09/26/21 Bibiana Taylor NP [address] [place] [address] Historical LMR Provider 09/04/17 2 Lara Dinh, GIORGIOCS [email or web address] Historical LMR Provider 09/04/17 11/25/21 Becky Longo MD [address] [facility] [address] [place] [address] [email or web address] Historical LMR Provider 09/04/17 2 Alexandra Townsend MD [address] [address] [email or web address] Historical LMR Provider 09/04/17 11/25/21 documented as of this encounter Additional Source Comments The information contained in this document represents components of the legal health record. It is not the complete legal health record.[facility]
--- OUTSIDE RECORDS SUMMARY | 2025-07-26 14:27 | XMS_ITS | Encounter Summary ---
Author Organization [facility] Address 399 [facility] [address] [place] [address] Phone Care Team Providers Care Activated Sludge Operator Name Role Phone Simran James MD Primary Care Provider [phone] Encounter Details Date Type Department Care Team (Late st Contact Info) Description 06/25/2022 Procedure Pass [address] [address] Social History Tobacco Use Types Packs/Day Years [...] on filedocumented in this encounter Care Teams Activated Sludge Operator Relationship Specialty Start Date End Date Simran James [facility] [place] [address] [email or web address] PCP - General Family Medicine 09/26/21 documented as of this encounter Additional Source Comments The information contained in this document represents components of the legal health record. It is not the complete legal health record.[facility]
--- OUTSIDE RECORDS SUMMARY | 2025-07-26 14:27 | XMS_ITS | Encounter Summary ---
Author Organization [facility] Address [address] [address] Phone Care Team Providers Care Biomedical Equipment Tech Name Role Phone Bibiana Taylor NP Unavailable [phone] Lara Dinh RDCS Unavailable [email or web address] Becky Longo MD Unavailable Alexandra Townsend MD Unavailable Simran James MD Primary Care Provider [phone] Tenzin Hernandez MD Primary Care Provide r Simran James MD Primary Care Provider [phone] Encounter Details Date Type Department Care Team (Late st Contact Info) Description 03/10/2020 Ancillary Orders Virtual Department [address] [place], [place] [id number] Simran James MD [address] [place], [place] [id number] [email or web address] Breast screening Social History Tobacco Use Types [...] MAMMOGRAM SCREENING WITH TOMOSYNTHESIS WITH CAD (BILATERAL) (09/02/2020 1:22 PM EDT) Anatomical Region Laterality Modality Breast Left, Breast Right, Breast Bilateral Bila teral Mammography 09/02/2020 5:15 PM EDT Impressions 09/02/2020 5:20 PM EDT No mammographic signs of malignancy. Annual screening is recommended. BI-RADS CATEGORY 1 - NEGATIVE DENSITY: There are scattered fibroglandular densities. Narrative 09/02/2020 5:20 PM EDT Bilateral mammography is performed in conjunction with computed aided detection. 3-D tomography along with 2-D C view imaging was also performed. Comparison made to previous dated as far back as 01/31 and as recent as 06/03/2019. No suspicious masses, areas of architectural distortion or suspicious microcalcifications. Simran James MD IMG MG EXAMS Final Res ult documented in this encounter Visit Diagnoses Diagnosis Breast screening Breast screening, unspecified Breast screening Breast screening, unspecified documented in this encounter Care Teams Biomedical Equipment Tech Relationship Specialty Start Date End Date Simran James MD [address] [place] [address] [email or web address] PCP - General Family Medicine 03/10/20 09/09/21 Tenzin Hernandez MD [address] [address] PCP - General Family Medicine 09/10/21 09/25/21 Simran James MD [address] [place] [address] [email or web address] PCP - General Family Medicine 09/26/21 Bibiana Taylor NP [address] [place] [address] Historical LMR Provider 09/04/17 2 Lara Dinh, RDCS [email or web address] Historical LMR Provider 09/04/17 11/25/21 Becky Longo MD [address] [facility] [address] [place] [address] [email or web address] Historical LMR Provider 09/04/17 2 Alexandra Townsend MD [address] [address] [email or web address] Historical LMR Provider 09/04/17 11/25/21 documented as of this encounter Additional Source Comments The information contained in this document represents components of the legal health record. It is not the complete legal health record.[facility]
--- OUTSIDE RECORDS SUMMARY | 2025-07-26 14:27 | XMS_ITS | Patient Health Record ---
Author Organization [facility] Address [address] [facility] [address] [place] [address] Care Team Providers Care Econometrician Name Role Phone Estephania Benedict Unavailable [phone] Allergies Allergen (clinical drug ingredient) Drug/Non Drug Allergy documented on EMR Reaction Allergy Type Onset Date Status povidone-iodine Betadine Unknown Drug Allergy A ctive Results Component Value Reference Range Notes Urinalysis Reviewed date:02/03/2025 09:27:36 AM Interpretation: Performing Lab: Notes/Report: PH 8.0 PROTEIN Neg GLUCOSE Neg [id number] IGP No Culture 30 Plus Reviewed date:02/07/2025 11:19:09 AM Interpretation: Performing Lab:[facility] [place], [address], [address], [place], Phone - [phone], Director - [facility] Notes/Report: Clinical Information:Vaginal/Cervical, LMP: Men o [id number] LMP / Prev Treat...[id number]=[id number] Dates / Results....02/22/21 NIL, Neg HPV Other..............Post Menopausal No. of containers..01 ThinPrep Vial DIAGNOSIS: NEGATIVE FOR INTRAEPITHELIAL LESION OR MALIGNANCY. CELLULAR CHANGES ASSOCIATED WITH ATROPHY ARE PRESENT. Specimen adequacy: Satisfactory for evaluation. Endocervical component may not be distinguished in cases of atrophy. Clinician provided ICD10: Z0 1.419 Performed by: Andreas Olson , Outdoor Guide (ASC) . . Note: The Pap smear is a screening test designed to aid in the detection of premalignant and malignant conditions of the uterine cervix. It is not a diagnostic procedure and should not be used as the sole means of detecting cervical cancer. Both false-positive and false-negative reports do occur. . Test Methodology: TN The Thin Prep(R) Sustainable Landscape Architect was unable to read this specimen. Therefore a manual review was performed. HPV Aptima Negative Negative This nucleic acid amplification test detects fourteen high-risk HPV types (16,18,31,33,35,39,45,51,52,56,58 ,59,66,68) without differentiation. HPV Genotype Reflex Criteria not met, HPV Genotype not performed. PDF Report Reviewed date:02/07/2025 11:18:52 AM Interpretation: Performing Lab:[facility], [address], [address], [place], Phone - [phone], Director - [facility] Notes/Report: Clinical Information:Vaginal/Cervical, LMP: Men o [id number] LMP / Prev Treat...[id number] Dates / Results....02/22/21 NIL, Neg HPV Other..............Post Menopausal No. of containers..01 ThinPrep Vial Reason For Referral No Information Medications Medication SIG (Take, Route, Frequency, Duration) Notes Start Date End Date Status Symbicort 80-4.5 MCG/ACT INHALE 2 PUFFS TWICE A DAY Inhalation; Duration: 30 Not-Taking Albuterol Sulfate HFA 108 (90 Base) MCG/ACT INHALE 1 PUFF EVERY 6 HOURS NEEDED FOR WHEEZE Inhalation; Duration: 25 Not-Taking Calcium Magnesium Zinc 333-133-5 MG 1 tablet with meals Orally Active Glucosamine Chondr Complex Active Flax Seed Oil 1000 MG as directed Orally Active Vitamin B Complex - as directed Orally Active Estradiol 10 MCG 1 tablet Vaginal Two times a Week; Duration: 90 days 02/03/2025 Active Social History Tobacco [...] Status W/U Status Risk Notes Problem Menopause (883081595) Menopausal and female climacteric states (N95.1) Active confirmed Problem Postmenopausal atrophic vaginitis (48130649) Postmenopausal atrophic vaginitis (N95.2) Active confirmed Problem Postmenopausal bleeding (17770401) Postmenopausal bleeding (N95.0) Active confirmed Problem Anxiety disorder (750191992) Anxiety disorder, unspecified (F41.9) Active confirmed Problem Asthma (756889255) Other asthma (J45.998) Active confirmed Problem Abnormal vaginal bleeding (936722764) Other specified abnormal uterine and vaginal bleeding (N93.8) Active confirmed Problem Unspecified menopausal and perimenopausal disorder (N95.9) Active confirmed Problem Menopause (613134066) Menopausal and female climacteric states (N95.1) Active confirmed Vital Signs Temperature 97.9 degrees Fahrenheit 02/03/2025 Blood pressure diastolic 84 mm Hg 02/03/2025 Height 67 in 02/03/2025 Blood pressure systolic 124 mm Hg 02/03/2025 Weight 189 lbs 02/03/2025 BMI 29.6 kg/m2 02/03/2025 Encounters Encounter Location Date Provider Diagnosis [facility] [facility] [address] [place] [address] 02/03/2025 Estephania Benedict Encounter for screening mammogram for malignant neoplasm of breast Z12.31 ; Postmenopausal atrophic vaginitis N95.2 and Encounter for gynecological examination (general) (routine) without abnormal findings Z01.419 [facility] [facility] [facility] [address] [place] [address] 02/03/2025 Estephania Benedict Postmenopausal atrophic vaginitis N95.2 [facility] [employer] [facility] [facility] [address] [place] [address] 02/15/2025 Estephania Benedict Assessments Encounter Date Diagnosis [...] Name:Estephania Stanley [email or web address], 02/04/2026 10:20:00 AM, [address] [facility], [address], [place], [address], Insurance Providers Payer Name Payer Address Payer Phone Subscriber Number Group Number Insured Name Patient Relationship to Insured Coverage Start Date Coverage End Date [employer] [address] [place] [id number] [facility] Self - patient is the insured Medical [...]
--- OUTSIDE RECORDS SUMMARY | 2025-07-26 14:27 | XMS_ITS | Clinical Summary ---
Author Organization [facility] Address [address] [facility] [address] [place] [address] Phone Care Team Providers Care Dynamite Reclaimer Name Role Phone Simran James MD Primary Care Provider [phone] Allergies Active Allergy Reactions Criticality Noted Date Comments Other Sneezing 10/09/2024 Other Reaction(s): ITCHY WATERY EYES, SNEEZING Povidone-Iodine Unknown 08/29/2022 Other Reaction(s): major nasty rash Medications albuterol 90 mcg/actuation inhaler Inhale 1 puff into the lungs every 6 (six) hours as needed. 10/02/2021 Active budesonide-form oterol (SYMBICORT) 80-4.5 mcg/actuation inhaler Inhale 2 puffs into the lungs 2 (two) times a day. Active b complex vitamins capsule Take 1 capsule by mouth daily. Active Social History Tobacco Use Types Packs/Day Years Used Date Smoking Tobacco: Never Smokeless Tobacco: Never Tobacco Cessation:Counseling Given: Not Answered Alcohol Use Standard Drinks/Week Comments Yes 0 [...] on file Sexual Orientation Not on file Last Filed Vital Signs Vital Sign Reading Time Taken Comments Blood Pressure 98/58 10/13/2024 10:01 AM EST Pulse 67 10/13/2024 10:01 AM EST Temperature 36 C (96.8 F) 10/13/2024 9:45 AM EST Respiratory Rate 16 10/13/2024 10:01 AM EST Oxygen Saturation 99% 10/13/2024 10:01 AM EST Inhaled Oxygen Concentration - - Weight 86.2 kg (190 lb) 10/09/2024 9:23 AM EST Height 170.2 cm (5' 7 ) 10/09/2024 9:23 AM EST Body Mass Index 29.76 10/09/2024 9:23 AM EST Plan of Treatment Health Maintenance Due Date Last Done Comments LIPID PANEL 1965 DEPRESSION SCREENING 1976 HEPATITIS C SCREENING 02/01/1982 HIV ONE-TIME SCREENING (18-65 YEARS) 02/01/1982 PAP SMEAR 02/01/1985 SCREENING FOR DIABETES 02/01/1999 COLOGUARD 02/01/2009 FIT TEST 02/01/2009 FOBT 02/01/2009 SIGMOIDOSCOPY 02/01/2009 VIRTUAL COLONOSCOPY 02/01/2009 PNEUMOCOCCAL VACCINES (50+ years) (1 of 1 - PCV) 02/01/2014 MAMMOGRAM 09/11/2024 09/11/2022, 10, 09/02/2020, Additional history exists INFLUENZA VACCINE (#1) 2025 09/09/2020, 2019 COVID-19 VACCINE ( season) 2025 09/08/2021, 01/10/2021, 12/13/2020 Adult Td,Tdap Booster 07/25/2026 07/25/2016, 005 COLONOSCOPY 10/13/2034 10/13/2024 COLORECTAL CANCER SCREENING 10/13/2034 RSV VACCINE (1 - 1-dose 75+ series) 02/01/2039 ZOSTER VACCINES Completed 11/30/2020, 08/19, 09/09/2020 SMOKING STATUS SCREENING (Once After 26 Yrs) Completed 10/13/2024 HEPATITIS A VACCINES Aged Out No long er eligible based on patient's age to complete this topic HIB VACCINES Aged Out No longer eligi ble based on patient's age to complete this topic MENINGOCOCCAL VACCINES (ACWY) Aged Out No longer eligible based on patient's age to complete this topic MENINGOCOCCAL VACCINES (B) Aged Out N o longer eligible based on patient's age to complete this topic Medical Devices Not on file Procedures Procedure Name Priority Date/Time Associated Diagnosis Comments ENDOSCOPY, COLON 10/13/2024 9:26 AM EST BI MAMMOGRAM SCREENING WITH TOMOSYNTHESIS WITH CAD (BILATERAL) Routine 09/11/2022 2:10 PM EDT Breast screening from Last 3 Months or Most Recently Relevant to Health Maintenance Results * ENDOSCOPY, COLON (10/13/2024 9:26 AM EST) Narrative Transcriptions Juan Remy MD - 10/13/2024 9:26 AM EST [facility] Patient Name: Anai Ball Attending MD:: JUAN REMY MD, , Procedure Date: 10/13/2024 9:26 AM Date of : 1965 Age: 59 Admit Type: Outpatient Gender: Female Room: [place] [address] Referring MD: Simran James Exam Type: Colonoscopy Indications: Screening for colorectal malignant neoplasm Medications: Monitored Anesthesia Care Procedure: Informed consent was obtained from the patientafter discussion of the indications, limitations, alternatives, benefits, and risks of the procedure. Risks specifically discussed include but are not limited to medication reactions, missed lesions, bleeding, perforation, or the need for emergent surgery. Throughout the procedure, the patient's blood pressure, pulse, end-tidal CO2, and oxygensaturations were monitored continuously. The Olympus pediatric variable colonoscopePCF-[id number] #2 was introduced through the anus and advanced tothe cecum, identified by appendiceal orifice andileocecal valve. The colonoscopy was performed without difficulty. The patient tolerated the procedurewell. The quality of the bowel preparation was excellent. The quality of the bowel preparation was evaluated using the BBPS ([place] Bowel Preparation Scale)with scores of: Right Colon = 3, Transverse Colon = 3and Left Colon = 3 (entire mucosa seen well with no residual staining, small fragments of stool oropaque liquid). The total BBPS score equals 9. Anatomical landmarks were photographed. Complications: No immediate complications. Estimated blood loss:None. Findings: The perianal and digital rectal examinations were normal. Internal hemorrhoids were found duringretroflexion. The hemorrhoids were moderate. The exam was otherwise normal throughout theexamined colon. Impression: - Internal hemorrhoids. - No specimens collected. Recommendation: - Discharge patient to home. - Repeat colonoscopy in 10 years for screening purposes. JUAN REMY MD, 10/13/2024 9:43:01 AM This report has been signed electronically. Number of Addenda: 0 Note Initiated On: 10/13/2024 9:26 AM Procedure Code(s): --- Professional --- 10348, Colonoscopy, flexible; diagnostic, including collection of specimen(s) by brushing or washing, when performed (separateprocedure) --- Technical --- 47794, Colonoscopy, flexible; diagnostic, including collection of specimen(s) by brushing or washing, when performed (separateprocedure) Diagnosis Code(s): --- Professional --- Z12.11, Encounter for screening for malignantneoplasm of colon K64.8, Other hemorrhoids --- Technical --- Z12.11, Encounter for screening for malignantneoplasm of colon K64.8, Other hemorrhoids CPT copyright 2021 [employer]. All rights reserved. The codes documented in this report are preliminary and upon mosaic worker reviewmay be revised to meet current compliance requirements. Procedure Date: 10/13/2024 9:26:[address] [place], [place] [address] Simran James MD GI PROCEDURE ORDERABLES F inal Result * BI MAMMOGRAM SCREENING WITH TOMOSYNTHESIS WITH CAD (BILATERAL) (09/11/2022 2:10 PM EDT) Anatomical Region Laterality Modality Breast Left, Breast Right, Breast Bilateral Bila teral Mammography 09/12/2022 6:42 PM EDT Impressions 09/12/2022 6:45 PM EDT BILATERAL BREASTS: Benign, no specific mammographic evidence of malignancy. Normal interval follow-up is recommended in 12 months. BI-RADS: BI-RADS CATEGORY: 2 - Benign finding. DENSITY: There are scattered fibroglandular densities. Narrative 09/12/2022 6:45 PM EDT STUDY: BI MAMMOGRAM SCREENING WITH TOMOSYNTHESIS WITH CAD (BILATERAL) History: Right lumpectomy for atypia in 2018. TECHNIQUE: Bilateral full-field digital screening mammography is obtained and read in conjunction with computer-aided detection. Tomosynthesis as well as 2-D C view imaging were obtained. COMPARISON: Comparison made to multiple prior, most recent September 06, 2021, and most remote January 08, 2017. BREAST COMPOSITION: There are scattered areas of fibroglandular density RIGHT BREAST: Postsurgical changes. No significant masses, suspicious calcifications or other abnormalities are seen. LEFT BREAST: No significant masses, suspicious calcifications or other abnormalities are seen. Procedure Note Ana Maria Burton MD - 09/12/2022 STUDY: BI MAMMOGRAM SCREENING WITH TOMOSYNTHESIS WITH CAD (BILATERAL) History: Right lumpectomy for atypia in 2018. TECHNIQUE: Bilateral full-field digital screening mammography is obtainedand read in conjunction with computer-aided detection. Tomosynthesis aswell as 2-D C view imaging were obtained. COMPARISON: Comparison made to multiple prior, most recent August, and most remote January 08, 2017. BREAST COMPOSITION: There are scattered areas of fibroglandulardensity RIGHT BREAST: Postsurgical changes. No significant masses, suspiciouscalcifications or other abnormalities are seen. LEFT BREAST: No significant masses, suspicious calcifications or otherabnormalities are seen. IMPRESSION: BILATERAL BREASTS: Benign, no specific mammographic evidence ofmalignancy. Normal interval follow-up is recommended in 12 months. BI-RADS: BI-RADS CATEGORY: 2 - Benign finding. DENSITY: There are scattered fibroglandular densities. Simran James MD IMG MG EXAMS Final Res ult from Last 3 Months or Most Recently Relevant to Health Maintenance Insurance [facility] NAVIGATOR POS [facility] EXPLORER POS [facility] POS [facility] POS [facility] POS [employer] POS [employer] POS [facility]PL[facility] NAVIGATOR POS [facility] EXPLORER POS Care Teams Dynamite Reclaimer Relationship Specialty Start Date End Date Simran James MD [facility] [place] [address] [email or web address] PCP - General Family Medicine 09/26/21 Additional Source Comments The information contained in this document represents components of the legal health record. It is not the complete legal health record.[facility]
--- OUTSIDE RECORDS SUMMARY | 2025-07-26 14:27 | XMS_ITS | Encounter Summary ---
Author Organization [facility] Address [address] [facility] [address] [place] [address] Phone Care Team Providers Care Box Office Clerk Name Role Phone Becky Longo MD Primary Care Provider [phone] Bibiana Taylor NP Unavailable Lara Dinh RDCS Unavailable [email or web address] Becky Longo MD Unavailable Alexandra Townsend MD Unavailable Simran James MD Primary Care Provider [phone] Simran James MD Primary Care Provider [phone] Tenzin Hernandez MD Primary Care Provide r Simran James MD Primary Care Provider [phone] Encounter Details Date Type Department Care Team ([facility] st Contact Info) Description 12/02/2017 Ancillary Orders Virtual Department [address] [place] [address] Becky Longo MD [address] [facility], [address] [place] [address] [email or web address] Breast screening Social History Tobacco Use Types [...] documented as of this encounter Results * (ABNORMAL) BI MAMMOGRAM SCREENING WITH TOMOSYNTHESIS WITH CAD (BILATERAL) (01/10/2018 9:55 AM EST) Anatomical Region Laterality Modality Breast Left, Breast Right, Breast Bilateral Bila teral Mammography 01/10/2018 1:40 PM EST Impressions 01/10/2018 1:57 PM EST Recommend additional imaging for a mass in the left. No new suspicious findings on the right. The radiology department will attempt to recall the patient. BI-RADS CATEGORY: 0 - Incomplete. Need additional imaging evaluation. DENSITY: There are scattered fibroglandular densities. LEFT RECOMMENDATION DATE: Additional Imaging RIGHT RECOMMENDATION DATE: Mammography screening CALLBACK VIEWS: Left 90 ML, spot compression MLO and CC views, ultrasound POS - [facility] Narrative 01/10/2018 1:57 PM EST FINDINGS: Bilateral full-field digital screening mammography is obtained and read in conjunction with computer-aided detection. 3-D tomosynthesis as well as 2-D C view imaging is also performed. Comparison includes the most recent exam from 01/08/2017 and as far back as 11/03/2009. History of a right lumpectomy in 2014. Breasts are composed of scattered fibroglandular tissue. In the posterior upper outer left breast there is a 1 cm lobular circumscribed lesion for which additional imaging is recommended. Otherwise, no new dominant mass, suspicious microcalcifications, architectural distortion, focal skin thickening, or new asymmetry is detected. Becky Longo MD IMG MG EXAMS Final Result documented in this encounter Visit Diagnoses Diagnosis Breast screening Breast screening, unspecified Breast screening Breast screening, unspecified documented in this encounter Care Teams Box Office Clerk Relationship Specialty Start Date End Date Becky Longo MD [email or web address] PCP - General 09/02/17 05/26/19 Simran James MD [address] [place] [address] [email or web address] PCP - General Family Medicine 05/27/19 03/09/20 Simran James MD [address] [place] [address] [email or web address] PCP - General Family Medicine 03/10/20 09/09/21 Tenzin Hernandez MD [address] [address] PCP - General Family Medicine 09/10/21 09/25/21 Simran James MD [address] [place] [address] [email or web address] PCP - General Family Medicine 09/26/21 Bibiana Taylor NP [address] [address] Historical LMR Provider 09/04/17 2 Lara Dinh, RDCS [email or web address] Historical LMR Provider 09/04/17 11/25/21 Becky Longo MD [address] [place] [address] [place] [address] [email or web address] Historical LMR Provider 09/04/17 2 Alexandra Townsend MD [address] [address] [email or web address] Historical LMR Provider 09/04/17 11/25/21 documented as of this encounter Additional Source Comments The information contained in this document represents components of the legal health record. It is not the complete legal health record.[facility]
--- OUTSIDE RECORDS SUMMARY | 2025-07-26 14:27 | XMS_ITS | Encounter Summary ---
Author Organization Formerly [facility] Address [address] [facility] [address] [place] [address] Phone Care Team Providers Care Fishing Gear Mechanic Name Role Phone Bibiana Taylor NP Unavailable Lara Dinh RDCS Unavailable [email or web address] Becky Longo MD Unavailable Alexandra Townsend MD Unavailable Simran James MD Primary Care Provider [phone] Simran James MD Primary Care Provider [phone] [phone] Tenzin Hernanedz MD Primary Care Provide r Simran James MD Primary Care Provider +1 [phone] Encounter Details Date Type Department Care Team (Late st Contact Info) Description 05/27/2019 Ancillary Orders Virtual Department [address] [place] [address] Simran James MD [address] [place], [place] [id number] [email or web address] Breast screening Social History Tobacco Use [...] unspecified documented in this encounter Care Teams Fishing Gear Mechanic Relationship Specialty Start Date End Date Simran James MD [address] [place] [address] [email or web address] PCP - General Family Medicine 05/27/19 03/09/20 Simran James MD [address] [place] [address] [email or web address] PCP - General Family Medicine 03/10/20 09/09/21 Tenzin Hernandez MD [address] [address] PCP - General Family Medicine 09/10/21 09/25/21 Simran James MD [address] [place] [address] [email or web address] PCP - General Family Medicine 09/26/21 Bibiana Taylor NP [address] [place] [address] [address] [place] [address] Historical LMR Provider 09/04/17 2 Lara Dinh RDCS Historical LMR Provider 09/04/17 11/25/21 Becky Longo MD [address] [place] [address] [address] [place] [address] [email or web address] Historical LMR Provider 09/04/17 2 Alexandra Townsend MD [address] [place] [address] [email or web address] Historical LMR Provider 09/04/17 11/25/21 documented as of this encounter Additional Source Comments The information contained in this document represents components of the legal health record. It is not the complete legal health record.[facility]
--- OUTSIDE RECORDS SUMMARY | 2025-07-26 14:28 | XMS_ITS | Encounter Summary ---
Author Organization Formerly [facility] Address [address] [facility] [address] [place] [address] Phone Care Team Providers Care Professional Fee Coder Name Role Phone Becky Longo MD Primary Care Provider Bibiana Taylor NP Unavailable Lara Dinh RDCS Unavailable [email or web address] Becky Longo MD Unavailable Alexandra Townsend MD Unavailable Simran James MD Primary Care Provider [phone] [phone] Simran James MD Primary Care Provider [phone] Tenzin Hernandez MD Primary Care Provide r Simran James MD Primary Care Provider [phone] Encounter Details Date Type Department Care Team ([facility] st Contact Info) Description 01/13/2018 Ancillary Orders Virtual Department [address] [place] [address] Becky Longo MD [address] [facility], [address] [place] [address] [email or web address] Abnormal mammogram Social History Tobacco Use Types Packs/Day Years Used Date Smoking Tobacco: Never Assessed Comments Unknown Sex and Gender Information Value Date Recorded Sex Assigned at Not on file Legal Sex Female 9:43 PM EDT Gender Identity Not on file Sexual Orientation Not on file documented as of this encounter Plan of Treatment Not on file documented as of this encounter Results * BI US BREAST LIMITED (LEFT) (01/17/2018 9:49 AM EST) Anatomical Region Laterality Modality Breast Left, Breast Bilateral Left Ul trasound 01/17/2018 10:1 8 AM EST Impressions 01/17/2018 10:22 AM EST Subcentimeter breast cyst corresponds with the mammographic abnormality. No further workup needed. Routine screening mammography recommended. Results were discussed with the patient at completion of the examination. BI-RADS CATEGORY: 2 - Benign finding. Breast parenchyma is composed of scattered fibroglandular densities. LEFT RECOMMENDATION DATE: Mammography Screening RIGHT RECOMMENDATION DATE: Mammography screening POS - [id number] Narrative 01/17/2018 10:22 AM EST FINDINGS: Patient is recalled from a screening mammogram performed 01/10/2018 for additional imaging on the left. 90 ML view and spot compression MLO and CC views are performed with 2-D C view and 3-D tomosynthesis. There is an 8-9 mm ovoid circumscribed lesion in the upper outer quadrant which appears to correspond with a 7 x 6 x 2 mm cyst on ultrasound. Procedure Note Reji Singer MD - 01/17/2018 FINDINGS: Patient is recalled from a screening mammogram [id number]/23/2018 for additional imaging on the left. 90 ML view and spotcompression MLO and CC views are performed with 2-D C view and 3-Dtomosynthesis. There is an 8-9 mm ovoid circumscribed lesion in the upper outer quadrantwhich appears to correspond with a 7 x 6 x 2 mm cyst on ultrasound. IMPRESSION: Subcentimeter breast cyst corresponds with the mammographic abnormality.No further workup needed. Routine screening mammography recommended.Results were discussed with the patient at completion of theexamination. BI-RADS CATEGORY: 2 - Benign finding. Breast parenchyma is composed of scattered fibroglandular densities. LEFT RECOMMENDATION DATE: Mammography Screening RIGHT RECOMMENDATION DATE: Mammography screening POS - [id number] Becky Longo MD IMG US BREAST Final Result * BI MAMMOGRAM DIAGNOSTIC WITH TOMOSYNTHESIS NO CAD (LEFT) (01/17/2018 8:54 AM EST) Anatomical Region Laterality Modality Breast Left Left Mammography 01/17/2018 10:1 8 AM EST Impressions 01/17/2018 10:22 AM EST Subcentimeter breast cyst corresponds with the mammographic abnormality. No further workup needed. Routine screening mammography recommended. Results were discussed with the patient at completion of the examination. BI-RADS CATEGORY: 2 - Benign finding. Breast parenchyma is composed of scattered fibroglandular densities. LEFT RECOMMENDATION DATE: Mammography Screening RIGHT RECOMMENDATION DATE: Mammography screening POS - [id number] Narrative 01/17/2018 10:22 AM EST FINDINGS: Patient is recalled from a screening mammogram performed 01/10/2018 for additional imaging on the left. 90 ML view and spot compression MLO and CC views are performed with 2-D C view and 3-D tomosynthesis. There is an 8-9 mm ovoid circumscribed lesion in the upper outer quadrant which appears to correspond with a 7 x 6 x 2 mm cyst on ultrasound. Procedure Note Reji Singer MD - 01/17/2018 FINDINGS: Patient is recalled from a screening mammogram /23/2018 for additional imaging on the left. 90 ML view and spotcompression MLO and CC views are performed with 2-D C view and 3-Dtomosynthesis. There is an 8-9 mm ovoid circumscribed lesion in the upper outer quadrantwhich appears to correspond with a 7 x 6 x 2 mm cyst on ultrasound. IMPRESSION: Subcentimeter breast cyst corresponds with the mammographic abnormality.No further workup needed. Routine screening mammography recommended.Results were discussed with the patient at completion of theexamination. BI-RADS CATEGORY: 2 - Benign finding. Breast parenchyma is composed of scattered fibroglandular densities. LEFT RECOMMENDATION DATE: Mammography Screening RIGHT RECOMMENDATION DATE: Mammography screening POS - [id number] us Becky Longo MD IMG MG EXAMS Final Result documented in this encounter Visit Diagnoses Diagnosis Abnormal mammogram Abnormal mammogram, unspecified Abnormal mammogram Abnormal mammogram, unspecified Abnormal mammogram Abnormal mammogram, unspecified documented in this encounter Care Teams Professional Fee Coder Relationship Specialty Start Date End Date Becky Longo MD [email or web address] PCP - General 09/02/17 05/26/19 Simran James MD [address] [place] [address] [email or web address] PCP - General Family Medicine 05/27/19 03/09/20 Simran James MD [address] [place] [address] [email or web address] PCP - General Family Medicine 03/10/20 09/09/21 Tenzin Hernandez MD [address] [address] PCP - General Family Medicine 09/10/21 09/25/21 Simran James MD [address] [place] [address] [email or web address] PCP - General Family Medicine 09/26/21 Bibiana Taylor NP [address] [place] [address] Historical LMR Provider 09/04/17 2 Lara Dinh, RODRIGO [email or web address] Historical LMR Provider 09/04/17 11/25/21 Becky Longo MD [address] [facility], [address] [place] [address] [email or web address] Historical LMR Provider 09/04/17 2 Alexandra Townsend MD [address] [address] [email or web address] Historical LMR Provider 09/04/17 11/25/21 documented as of this encounter Additional Source Comments The information contained in this document represents components of the legal health record. It is not the complete legal health record.[facility]
--- OUTSIDE RECORDS SUMMARY | 2025-07-26 14:28 | XMS_ITS | Encounter Summary ---
Author Organization [facility] Address [address] [facility] [address] [place] [address] Phone Care Team Providers Care Pv Installer Tech Name Role Phone Simran James MD Primary Care Provider [phone] Encounter Details Date Type Department Care Team (Late st Contact Info) Description 10/13/2024 Procedure Pass [facility] Endoscopy Admitting Dept Virtual Department [address] [place] [address] Social History Tobacco Use Types Packs/Day Years [...] on filedocumented in this encounter Care Teams Pv Installer Tech Relationship Specialty Start Date End Date Simran James MD [address] [place] [address] [email or web address] PCP - General Family Medicine 09/26/21 documented as of this encounter Additional Source Comments The information contained in this document represents components of the legal health record. It is not the complete legal health record.[facility]
== END 2025-07-26 13:06 | disposition home or self-care (01) ==
LOC: HO.HMCFM 11:52
PROVIDERS: PCP Family Medicine; Visit Provider Family Medicine
DX: Z00.00 Encounter for general adult medical examination without abnormal findings (principal); F41.9 Anxiety disorder, unspecified; E78.00 Pure hypercholesterolemia, unspecified; J45.909 Unspecified asthma, uncomplicated; Z12.31 Encounter for screening mammogram for malignant neoplasm of breast; Z12.11 Encounter for screening for malignant neoplasm of colon

== ENCOUNTER → 2025-07-26 11:52 | Outpatient (BNVA) | payer OTHER, SELFPAY | PROVIDERS: PCP Family Medicine; Visit Provider Family Medicine | DX: Z00.00 Encounter for general adult medical examination without abnormal findings (principal); F41.9 Anxiety disorder, unspecified; F32.A Depression, unspecified; E78.00 Pure hypercholesterolemia, unspecified; J45.909 Unspecified asthma, uncomplicated | CPT/HCPCS: 96127 ==

== ENCOUNTER 2025-09-27 14:34 | Outpatient (AMB) | payer OTHER, SELFPAY ==
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
[2025-09-27 14:43] VITALS: BP 110/80; PULSE 74; RESP 18; TEMP 36.5; O2SAT 97; BMI 30.7
--- OUTSIDE RECORDS SUMMARY | 2025-09-27 16:54 | XMS_ITS | Encounter Summary ---
Author Organization [facility] Address [address] [facility] [address] [place] [address] Phone Care Team Providers Care Senior Accounting Specialist Name Role Phone Becky Longo MD Primary Care Provider [phone] Bibiana Taylor NP Unavailable [phone] Lara Dinh RDCS Unavailable [email or web address] Becky Longo MD Unavailable Alexandra Townsend MD Unavailable Simran James MD Primary Care Provider [phone] Simran James MD Primary Care Provider [phone] Tenzin Hernandez MD Primary Care Provide r Simran James MD Primary Care Provider [phone] Encounter Details Date Type Department Care Team ([facility] st Contact Info) Description 01/13/2018 Ancillary Orders Virtual Department [address] [place] [address] Becky Longo MD [address] [facility], [address] [place] [address] [email or web address] Abnormal mammogram Social History Tobacco Use Types [...] RIGHT RECOMMENDATION DATE: Mammography screening POS - [id number] Narrative 01/17/2018 10:22 AM EST FINDINGS: Patient [...] Patient is recalled from a screening mammogram btzucadks80/23/2018 for additional imaging on the left. 90 [...] RIGHT RECOMMENDATION DATE: Mammography screening POS - [id number] Becky Longo MD IMG US BREAST Final [...] RIGHT RECOMMENDATION DATE: Mammography screening POS - [id number] Narrative 01/17/2018 10:22 AM EST FINDINGS: Patient [...] Patient is recalled from a screening mammogram kiylvzcqz97/23/2018 for additional imaging on the left. 90 [...] RIGHT RECOMMENDATION DATE: Mammography screening POS - [id number] us Becky Longo MD IMG MG EXAMS Final Result documented in this encounter Visit Diagnoses Diagnosis Abnormal mammogram Abnormal mammogram, unspecified Abnormal mammogram Abnormal mammogram, unspecified Abnormal mammogram Abnormal mammogram, unspecified documented in this encounter Care Teams Senior Accounting Specialist Relationship Specialty Start Date End Date Becky Longo MD [email or web address] PCP - General 09/02/17 05/26/19 Simran James MD [address] [place] [address] [email or web address] PCP - General Family Medicine 05/27/19 03/09/20 Simran James MD [address] [place] [address] [email or web address] PCP - General Family Medicine 03/10/20 09/09/21 Tenzin Hernandez MD [address] [address] PCP - General Family Medicine 09/10/21 09/25/21 Simran James MD [address] [place] [address] [email or web address] PCP - General Family Medicine 09/26/21 Bibiana Taylor NP [address] [place] [address] Historical LMR Provider 09/04/17 2 Lara Dinh, RODRIGO [email or web address] Historical LMR Provider 09/04/17 11/25/21 Becky Longo MD [address] [facility], [address] [place] [address] [email or web address] Historical LMR Provider 09/04/17 2 Alexandra Townsend MD [address] [address] [email or web address] Historical LMR Provider 09/04/17 11/25/21 documented as of this encounter Additional Source Comments The information contained in this document represents components of the legal health record. It is not the complete legal health record.[facility]
--- OUTSIDE RECORDS SUMMARY | 2025-09-27 16:54 | XMS_ITS | Encounter Summary ---
Author Organization [facility] Address [address] [facility] [address] [place] [address] Phone Care Team Providers Care Chair And Couch Maker Name Role Phone Bibiana Taylor ACID CONDITIONING WORKER Unavailable Lara Dinh RDCS Unavailable [email or web address] Becky Longo MD Unavailable Alexandra Townsend MD Unavailable [phone] Simran James MD Primary Care Provider [phone] Tenzin Hernandez MD Primary Care Provide r Simran James MD Primary Care Provider [phone] Encounter Details Date Type Department Care Team (Late st Contact Info) Description 08/24/2021 Procedure Pass [address] [address] Social History Tobacco Use Types Packs/Day Years [...] on filedocumented in this encounter Care Teams Chair And Couch Maker Relationship Specialty Start Date End Date Simran James MD [address] [place] [address] [email or web address] PCP - General Family Medicine 03/10/20 09/09/21 Tenzin Hernandez MD [address] [address] PCP - General Family Medicine 09/10/21 09/25/21 Simran James MD [address] [place] [address] [email or web address] PCP - General Family Medicine 09/26/21 Bibiana Taylor NP [address] [place] [address] Historical LMR Provider 09/04/17 2 Lara Dinh, GIORGIOCS [email or web address] Historical LMR Provider 09/04/17 11/25/21 Becky Longo MD [address] [facility] [address] [place] [address] [email or web address] Historical LMR Provider 09/04/17 2 Alexandra Townsend MD [address] [address] [email or web address] Historical LMR Provider 09/04/17 11/25/21 documented as of this encounter Additional Source Comments The information contained in this document represents components of the legal health record. It is not the complete legal health record.[facility]
--- OUTSIDE RECORDS SUMMARY | 2025-09-27 16:54 | XMS_ITS | Encounter Summary ---
Author Organization [facility] Address 399 [facility] [address] [place] [address] Phone Care Team Providers Care Perennial House Manager Name Role Phone Simran James MD Primary Care Provider [phone] Encounter Details Date Type Department Care Team (Late st Contact Info) Description 06/25/2022 Procedure Pass [address] [address] Social History Tobacco Use Types Packs/Day Years [...] on filedocumented in this encounter Care Teams Perennial House Manager Relationship Specialty Start Date End Date Simran James MD [place] [address] [email or web address] PCP - General Family Medicine 09/26/21 documented as of this encounter Additional Source Comments The information contained in this document represents components of the legal health record. It is not the complete legal health record.[facility]
--- OUTSIDE RECORDS SUMMARY | 2025-09-27 16:54 | XMS_ITS | Encounter Summary ---
Author Organization [facility] Address [address] [address] Phone Care Team Providers Care Publication Designer Name Role Phone Bibiana Taylor NP Unavailable Lara Dinh RDCS Unavailable [email or web address] Becky Longo MD Unavailable Alexandra Townsend MD Unavailable Simran James MD Primary Care Provider [phone] Tenzin Hernandez MD Primary Care Provide r Simran James MD Primary Care Provider [phone] Encounter Details Date Type Department Care Team (Late st Contact Info) Description 03/10/2020 Ancillary Orders Virtual Department 30 [place], [place] [id number] Simran James MD [address] [place], [place] [id number] [email or web address] Breast screening Social History Tobacco Use [...] unspecified documented in this encounter Care Teams Publication Designer Relationship Specialty Start Date End Date Simran James MD [address] [place] [address] [email or web address] PCP - General Family Medicine 03/10/20 09/09/21 Tenzin Hernandez MD [address] [address] PCP - General Family Medicine 09/10/21 09/25/21 Simran James MD [address] [place] [address] [email or web address] PCP - General Family Medicine 09/26/21 Bibiana Taylor NP [address] [place] [address] Historical LMR Provider 09/04/17 2 Lara Dinh, RDCS [email or web address] Historical LMR Provider 09/04/17 11/25/21 Becky Longo MD [address] [facility] [address] [place] [address] [email or web address] Historical LMR Provider 09/04/17 2 Alexandra Townsend MD [address] [address] [email or web address] Historical LMR Provider 09/04/17 11/25/21 documented as of this encounter Additional Source Comments The information contained in this document represents components of the legal health record. It is not the complete legal health record.[facility]
--- OUTSIDE RECORDS SUMMARY | 2025-09-27 16:54 | XMS_ITS | Encounter Summary ---
Author Organization [facility] Address 399 [facility] [address] [place] [address] Phone Care Team Providers Care Vice President Of Procurement Name Role Phone Simran James MD Primary Care Provider [phone] Encounter Details Date Type Department Care Team (Latest Contact Info) Description 10/19/2024 Transcribe Orders Virtual Department 30 [place] [address] Simran James MD [address] [place], [place] [id number] [email or web address] Breast screening (Primary Dx) Social [...] unspecified documented in this encounter Care Teams Vice President Of Procurement Relationship Specialty Start Date End Date Simran James MD [address] [place] [address] [email or web address] PCP - General Family Medicine 09/26/21 documented as of this encounter Additional Source Comments The information contained in this document represents components of the legal health record. It is not the complete legal health record.[facility]
--- OUTSIDE RECORDS SUMMARY | 2025-09-27 16:54 | XMS_ITS | Clinical Summary ---
Author Organization [facility] Address 399 [facility] [address] [place] [address] Phone Care Team Providers Care Coremaking Supervisor Name Role Phone Simran James MD Primary Care Provider [phone] Allergies Active Allergy Reactions Criticality Noted Date [...] Remy MD - 10/13/2024 9:26 AM EST [facility] Patient Name: Anai Ball Attending MD:: JUAN REMY MD, , Procedure Date: 10/13/2024 9:26 AM Date of : 1965 Age: 59 Admit Type: Outpatient Gender: Female Room: [place] [address] Referring MD: Simran James Exam Type: Colonoscopy [...] bowel preparation was evaluated using the BBPS ([place] Bowel Preparation Scale)with scores of: Right Colon [...] 9:26 AM Procedure Code(s): --- Professional --- 81907, Colonoscopy, flexible; diagnostic, including collection of specimen(s) by brushing or washing, when performed (separateprocedure) --- Technical --- 07047, Colonoscopy, flexible; diagnostic, including collection of specimen(s) by brushing or washing, when performed (separateprocedure) Diagnosis Code(s): --- Professional --- Z12.11, Encounter for screening for malignantneoplasm of colon K64.8, Other hemorrhoids --- Technical --- Z12.11, Encounter for screening for malignantneoplasm of colon K64.8, Other hemorrhoids CPT copyright 2021 [employer]. All rights reserved. The codes documented in this report are preliminary and upon universal grinder operator reviewmay be revised to meet current compliance requirements. Procedure Date: 10/13/2024 9:26:[address] [place], [place] [address] Simran James MD GI PROCEDURE ORDERABLES F [...] Most Recently Relevant to Health Maintenance Insurance [facility] NAVIGATOR POS [facility] EXPL[facility]ER POS [facility] POS [facility] POS [facility] [employer] POS [facility] EXPL[facility] NAVIGATOR POS [facility] EXPLORER POS Care Teams Coremaking Supervisor Relationship Specialty Start Date End Date Simran James MD [facility] [place] [address] [email or web address] PCP - General Family Medicine 09/26/21 Additional Source Comments The information contained in this document represents components of the legal health record. It is not the complete legal health record.[facility]
--- OUTSIDE RECORDS SUMMARY | 2025-09-27 16:54 | XMS_ITS | Encounter Summary ---
Author Organization [facility] Address [address] [facility] [address] [place] [address] Phone Care Team Providers Care Education Department Chair Name Role Phone Becky Longo MD Primary Care Provider Bibiana Taylor NP Unavailable [phone] Lara Dinh RDCS Unavailable [email or web address] Becky Longo MD Unavailable Alexandra Townsend MD Unavailable Simran James MD Primary Care Provider [phone] Simran James MD Primary Care Provider [phone] Tenzin Hernandez MD Primary Care Provide r Simran James MD Primary Care Provider [phone] Encounter Details Date Type Department Care Team ([facility] st Contact Info) Description 12/02/2017 Ancillary Orders Virtual Department [address] [place] [address] Becky Longo MD 38 [facility] [address] [place] [address] [email or web address] Breast screening Social History Tobacco Use [...] unspecified documented in this encounter Care Teams Education Department Chair Relationship Specialty Start Date End Date Becky Longo MD [email or web address] PCP - General 09/02/17 05/26/19 Simran James MD [address] [place] [address] [email or web address] PCP - General Family Medicine 05/27/19 03/09/20 Simran James MD [address] [place] [address] [email or web address] PCP - General Family Medicine 03/10/20 09/09/21 Tenzin Hernandez MD [address] [address] PCP - General Family Medicine 09/10/21 09/25/21 Simran James MD [address] [place] [address] [email or web address] PCP - General Family Medicine 09/26/21 Bibiana Taylor NP [address] [address] Historical LMR Provider 09/04/17 2 Lara Dinh, RDCS [email or web address] Historical LMR Provider 09/04/17 11/25/21 Becky Longo MD [address] [place] [address] [place] [address] [email or web address] Historical LMR Provider 09/04/17 2 Alexandra Townsend MD [address] [address] [email or web address] Historical LMR Provider 09/04/17 11/25/21 documented as of this encounter Additional Source Comments The information contained in this document represents components of the legal health record. It is not the complete legal health record.[facility]
--- OUTSIDE RECORDS SUMMARY | 2025-09-27 16:54 | XMS_ITS | Encounter Summary ---
Author Organization [facility] Address 399 [facility] [address] [place] [address] Phone Care Team Providers Care Travel Insurance Agent Name Role Phone Bibiana Taylor NP Unavailable [phone] Lara Dinh RDCS Unavailable [email or web address] Becky Longo MD Unavailable Alexandra Townsend MD Unavailable [phone] Simran James MD Primary Care Provider [phone] Simran James MD Primary Care Provider [phone] Tenzin Hernandez MD Primary Care Provide r Simran James MD Primary Care Provider [phone] Encounter Details Date Type Department Care Team (Late st Contact Info) Description 05/27/2019 Ancillary Orders Virtual Department 30 [place] [address] Simran James MD [address] [place], [place] [id number] [email or web address] Breast screening Social History Tobacco Use Types [...] unspecified documented in this encounter Care Teams Travel Insurance Agent Relationship Specialty Start Date End Date Simran James MD [address] [place] [address] [email or web address] PCP - General Family Medicine 05/27/19 03/09/20 Simran James MD [address] [place] [address] [email or web address] PCP - General Family Medicine 03/10/20 09/09/21 Tenzin Hernandez MD [address] [address] PCP - General Family Medicine 09/10/21 09/25/21 Simran James MD [address] [place] [address] [email or web address] PCP - General Family Medicine 09/26/21 Bibiana Taylor NP [address] [place] [address] [address] [place] [address] Historical LMR Provider 09/04/17 2 Lara Dinh RDCS Historical LMR Provider 09/04/17 11/25/21 Becky Longo MD [address] [place] [address] [address] [place] [phone] [email or web address] Historical LMR Provider 09/04/17 2 Alexandra Townsend MD [address] [place] [address] [email or web address] Historical LMR Provider 09/04/17 11/25/21 documented as of this encounter Additional Source Comments The information contained in this document represents components of the legal health record. It is not the complete legal health record.[facility]
--- OUTSIDE RECORDS SUMMARY | 2025-09-27 16:54 | XMS_ITS | Encounter Summary ---
Author Organization [facility] Address [address] [facility] [address] [place] [address] Phone Care Team Providers Care Dropper Tank Storage Name Role Phone Bibiana Taylor VAULT ATTENDANT Unavailable Lara Dinh RDCS Unavailable [email or web address] Becky Longo MD Unavailable Alexandra Townsend MD Unavailable [phone] Simran James MD Primary Care Provider [phone] Tenzin Hernandez MD Primary Care Provide r Simran James MD Primary Care Provider [phone] Encounter Details Date Type Department Care Team (Late st Contact Info) Description 07/19/2020 Procedure Pass [address] [address] Social History Tobacco Use Types Packs/Day Years [...] on filedocumented in this encounter Care Teams Dropper Tank Storage Relationship Specialty Start Date End Date Simran James MD [facility] [place] [address] [email or web address] PCP - General Family Medicine 03/10/20 09/09/21 Tenzin Hernandez MD [address] [address] PCP - General Family Medicine 09/10/21 09/25/21 Simran James MD [address] [place] [address] [email or web address] PCP - General Family Medicine 09/26/21 Bibiana Taylor NP [address] [place] [address] Historical LMR Provider 09/04/17 2 Lara Dinh, GIORGIOCS [email or web address] Historical LMR Provider 09/04/17 11/25/21 Becky Longo MD 38 [facility] [address] [place] [address] [email or web address] Historical LMR Provider 09/04/17 2 Alexandra Townsend MD [address] [address] [email or web address] Historical LMR Provider 09/04/17 11/25/21 documented as of this encounter Additional Source Comments The information contained in this document represents components of the legal health record. It is not the complete legal health record.[facility]
--- OUTSIDE RECORDS SUMMARY | 2025-09-27 16:54 | XMS_ITS | Encounter Summary ---
Author Organization [facility] Address [address] [address] Phone Care Team Providers Care Excelsior Machine Feeder Name Role Phone Bibiana Taylor NP Unavailable Lara Dinh RDCS Unavailable [email or web address] Becky Longo MD Unavailable Alexandra Townsend MD Unavailable Simran James MD Primary Care Provider [phone] Tenzin Hernandez MD Primary Care Provide r Simran James MD Primary Care Provider [phone] Encounter Details Date Type Department Care Team (Latest Contact Info) Description 08/24/2021 Transcribe Orders Virtual Department 30 [place] [address] Simran James MD [address] [place] [address] [email or web address] Breast screening (Primary Dx) Social History Tobacco [...] unspecified documented in this encounter Care Teams Excelsior Machine Feeder Relationship Specialty Start Date End Date Simran James MD [address] [place] [address] [email or web address] PCP - General Family Medicine 03/10/20 09/09/21 Tenzin Hernandez MD [address] [address] PCP - General Family Medicine 09/10/21 09/25/21 Simran James MD [address] [place] [address] [email or web address] PCP - General Family Medicine 09/26/21 Bibiana Taylor NP [address] [place] [address] Historical LMR Provider 09/04/17 2 Lara Dinh, RDCS [email or web address] Historical LMR Provider 09/04/17 11/25/21 Becky Longo MD [address] [place] [address] [address] [place] [phone] [email or web address] Historical LMR Provider 09/04/17 2 Alexandra Townsend MD [address] [address] [email or web address] Historical LMR Provider 09/04/17 11/25/21 documented as of this encounter Additional Source Comments The information contained in this document represents components of the legal health record. It is not the complete legal health record.[facility]
--- OUTSIDE RECORDS SUMMARY | 2025-09-27 16:54 | XMS_ITS | Encounter Summary ---
Author Organization [facility] Address 399 [facility] [address] [place] [address] Phone Care Team Providers Care Liquid Flavor Compounder Name Role Phone Simran James MD Primary Care Provider [phone] Encounter Details Date Type Department Care Team (Late st Contact Info) Description 10/13/2024 Procedure Pass [facility] Admitting Dept Virtual Department 30 [place] [address] Social History Tobacco Use Types Packs/Day Years [...] on filedocumented in this encounter Care Teams Liquid Flavor Compounder Relationship Specialty Start Date End Date Simran Jaems MD [address] [place] [address] [email or web address] PCP - General Family Medicine 09/26/21 documented as of this encounter Additional Source Comments The information contained in this document represents components of the legal health record. It is not the complete legal health record.[facility]
== END 2025-09-27 15:17 | disposition home or self-care (01) ==
LOC: HO.HMCFM 14:34
PROVIDERS: PCP Family Medicine; Visit Provider Family Medicine
DX: J45.909 Unspecified asthma, uncomplicated (principal); F41.9 Anxiety disorder, unspecified; M54.9 Dorsalgia, unspecified; M46.1 Sacroiliitis, not elsewhere classified

== ENCOUNTER → 2025-09-27 14:34 | Outpatient (BNVA) | payer OTHER, SELFPAY | PROVIDERS: PCP Family Medicine; Visit Provider Family Medicine | DX: M46.1 Sacroiliitis, not elsewhere classified (principal); J45.909 Unspecified asthma, uncomplicated; F41.9 Anxiety disorder, unspecified; Z79.899 Other long term (current) drug therapy | CPT/HCPCS: 96127 ==